=== PATIENT | female | born 1975 | race Caucasian/White ===

== ENCOUNTER 2020-05-30 20:06 | Inpatient (IN) | payer SELFPAY ==
[~2020-05-30] VITALS: Ht 154.9 cm; Wt 76.8 kg
--- OUTSIDE RECORDS SUMMARY | 2020-05-30 20:12 | XMS REPORT | Referral Summary ---
Author Author [facility] Organization [facility] Address Unknown Phone Unavailable Encounter VC Date(s): 05/28/18 - 05/28/18 [facility] [address] [place] [address] Discharge Disposition: Against Medical Advice Attending Physician: Mark Valdez DO Admitting Physician: Mark Valdez DO Vital Signs No data available for this section Problem List No data available for this section Allergies, Adverse Reactions, Alerts No data available for this section Medications No data available for this section Results No data available for this section Immunizations No data available for this section Procedures No data available for this section Social History No data available for this section Assessment and Plan No data available for this section
--- OUTSIDE RECORDS SUMMARY | 2020-05-30 20:12 | XMS REPORT ---
Author ELEANOR Stephen SYSTEM Organization Unknown Address Unknown Phone Unavailable Care Team Providers Care Mems Integration Engineer Name Role Phone UNASSIGNED DOCTOR , DOCTOR PP [phone] Reason For Visit Chief Complaint DEHYDRATED Social History Functional Status Vital Signs Results Chemistry from 02/24/2016 11:35 AMSODIUM 139 MMOL/L (136-145 MMOL/L) POTASSIUM 4.0 MMOL/L (3.5-5.1 MMOL/L) CHLORIDE 104 MMOL/L (98-107 MMOL/L) TCO2 24.4 MMOL/L (21.0-32.0 MMOL/L) *ANION GAP 10.6 MMOL/L (8.0-16.0 MMOL/L) BUN 12 MG/DL (7-18 MG/DL) CREATININE 0.66 MG/DL (0.55-1.02 MG/DL) *BUN/CREATININE RATIO 18.2 H (9.1-17.0 ) GLUCOSE 115 MG/DL H (65-99 MG/DL) *GFR EST NON AFR [place] >90 ML/MIN *GFRA EST AFR AMER >90 ML/MIN CALCIUM 8.5 MG/DL (8.5-10.1 MG/DL) BILIRUBIN TOTAL 0.40 MG/DL (0.20-1.00 MG/DL) TOTAL PROTEIN 7.1 GM/DL (6.4-8.2 GM/DL) ALBUMIN 3.6 GM/DL (3.4-5.0 GM/DL) *GLOBULIN 3.5 GM/DL (2.3-3.5 GM/DL) *A/G RATIO 1.0 MG/DL L (1.5-2.2 MG/DL) ALK PHOS 49 U/L (46-116 U/L) ALT (SGPT) 38 U/L (16-63 U/L) AST (SGOT) 24 U/L (15-37 U/L) Hematology from 02/24/2016 11:35 AMWBC 12.7 X10e3/UL H (3.6-11.2 X10e3/UL) RBC 4.72 X10e6/UL (3.63-4.92 X10e6/UL) HEMOGLOBIN 13.9 G/DL (11.0-14.3 G/DL) HEMATOCRIT 42.6 % H (31.2-41.9 %) *MCV 90.3 FL (79.0-98.0 FL) *MCH 29.4 PG (27.0-33.0 PG) *MCHC 32.6 G/DL (32.0-36.0 G/DL) *RDW 14.2 % (12.3-17.0 %) *RDWSD 45.1 (37.1-47.8 ) PLATELET 220 X10e3/UL (159-386 X10e3/UL) *MPV 10.1 FL (7.4-10.4 FL) AUTOMATED DIFF PERFORMED SEGS 80.4 % *LYMPHOCYTES 11.5 % *MONOCYTES 5.0 % *EOSINOPHILS 2.7 % *BASOPHILS 0.4 % *ABSOLUTE NEUTROPHILS 10.20 X10e3/UL H (1.80-7.80 X10e3/UL) *ABSOLUTE LYMPHOCYTES 1.50 X10e3/UL (1.00-3.00 X10e3/UL) *ABSOLUTE MONOCYTES 0.60 X10e3/UL (0.30-1.00 X10e3/UL) *ABSOLUTE EOSINOPHILS 0.30 X10e3/UL (0.00-0.50 X10e3/UL) *ABSOLUTE BASOPHILS 0.10 X10e3/UL (0.00-0.20 X10e3/UL) Urinalysis from 02/24/2016 1:10 PM*URINE COLOR YELLOW (STRAW/YELL/DK YELL ) *URINE APPEARANCE SL CLOUDY A (CLEAR ) URINE PH 5.5 (5.0-8.0 ) URINE SPECIFIC GRAVITY 1.010 (<=1.005->=1.030 ) *URINE GLUCOSE NEGATIVE MG/DL (NEGATIVE MG/DL) *URINE BILIRUBIN NEGATIVE (NEGATIVE ) *URINE KETONES NEGATIVE MG/DL (NEGATIVE MG/DL) *URINE BLOOD NEGATIVE (NEGATIVE ) *URINE PROTEIN NEGATIVE MG/DL (NEGATIVE MG/DL) *URINE UROBILINOGEN 0.2 EU/DL (0.2-1.0 EU/DL) *URINE NITRITES NEGATIVE (NEGATIVE ) *URINE LEUKOCYTES NEGATIVE (NEGATIVE ) Problems Encounter Diagnosis No relevant problems exist. Encounters Encounter Diagnosis No relevant problems exist. Plan of Care Procedures No relevant procedures performed. Immunizations No immunizations administered or ordered. Hospital Course Hospital Discharge Instructions Allergies, Adverse Reactions, Alerts * Penicillins causes unspecified. * Latex Allergy has not been assessed. * IV Contrast Allergy has not been assessed. Medication Medication reconciliation has not been performed.
--- OUTSIDE RECORDS SUMMARY | 2020-05-30 20:12 | XMS REPORT ---
Author ELEANOR Stephen SYSTEM Organization Unknown Address Unknown Phone Unavailable Care Team Providers Care Extrusion Press Operator Name Role Phone UNASSIGNED DOCTOR , DOCTOR PP Reason For Visit Chief Complaint VOMITING, DIARRHEA, NAUSEA Social History Functional Status Vital Signs Results Chemistry from 11/21/2015 1:41 PMSODIUM 138 MMOL/L (136-145 MMOL/L) POTASSIUM 3.7 MMOL/L (3.5-5.1 MMOL/L) CHLORIDE 107 MMOL/L (98-107 MMOL/L) TCO2 23.8 MMOL/L (21.0-32.0 MMOL/L) *ANION GAP 7.2 MMOL/L L (8.0-16.0 MMOL/L) BUN 14 MG/DL (7-18 MG/DL) CREATININE 0.73 MG/DL (0.55-1.02 MG/DL) *BUN/CREATININE RATIO 19.2 H (9.1-17.0 ) GLUCOSE 97 MG/DL (65-99 MG/DL) *GFR EST NON AFR [place] >90 ML/MIN *GFRA EST AFR AMER >90 ML/MIN CALCIUM 8.0 MG/DL L (8.5-10.1 MG/DL) BILIRUBIN TOTAL 0.30 MG/DL (0.20-1.00 MG/DL) TOTAL PROTEIN 6.6 GM/DL (6.4-8.2 GM/DL) ALBUMIN 3.1 GM/DL L (3.4-5.0 GM/DL) *GLOBULIN 3.5 GM/DL (2.3-3.5 GM/DL) *A/G RATIO 0.9 MG/DL L (1.5-2.2 MG/DL) ALK PHOS 46 U/L (46-116 U/L) ALT (SGPT) 25 U/L (16-63 U/L) AST (SGOT) 17 U/L (15-37 U/L) LIPASE 200 U/L (73-393 U/L) Chemistry from 11/21/2015 1:35 PM*COCAINE NEGATIVE (NEG <150 ) *PCP NEGATIVE (NEG <25 ) *OXYCODONE POSITIVE A (NEG <100 ) *PROPOXYPHENE (NORPROPOXYPHENE) NEGATIVE (NEG <300 ) *CANNABINOIDS NEGATIVE (NEG <50 ) *BENZODIAZEINE POSITIVE A (NEG <150 ) *AMPHETAMINE POSITIVE A (NEG <500 ) *BARBITURATES NEGATIVE (NEG <200 ) *METHAMPHETAMINES POSITIVE A (NEG <500 ) *METHADONE (UR) NEGATIVE (NEG <200 ) *OPIATES NEGATIVE (NEG <100 ) *TRICYCLICS NEGATIVE (NEG <300 ) Hematology from 11/21/2015 1:41 PMWBC 5.1 X10e3/UL (3.6-11.2 X10e3/UL) RBC 4.20 X10e6/UL (3.63-4.92 X10e6/UL) HEMOGLOBIN 13.0 G/DL (11.0-14.3 G/DL) HEMATOCRIT 39.2 % (31.2-41.9 %) *MCV 93.4 FL (79.0-98.0 FL) *MCH 30.9 PG (27.0-33.0 PG) *MCHC 33.1 G/DL (32.0-36.0 G/DL) *RDW 13.4 % (12.3-17.0 %) *RDWSD 43.8 (37.1-47.8 ) PLATELET 204 X10e3/UL (159-386 X10e3/UL) *MPV 9.9 FL (7.4-10.4 FL) AUTOMATED DIFF PERFORMED SEGS 72.2 % *LYMPHOCYTES 15.8 % *MONOCYTES 8.8 % *EOSINOPHILS 2.7 % *BASOPHILS 0.5 % *ABSOLUTE NEUTROPHILS 3.70 X10e3/UL (1.80-7.80 X10e3/UL) *ABSOLUTE LYMPHOCYTES 0.80 X10e3/UL L (1.00-3.00 X10e3/UL) *ABSOLUTE MONOCYTES 0.50 X10e3/UL (0.30-1.00 X10e3/UL) *ABSOLUTE EOSINOPHILS 0.10 X10e3/UL (0.00-0.50 X10e3/UL) *ABSOLUTE BASOPHILS 0.00 X10e3/UL (0.00-0.20 X10e3/UL) Urinalysis from 11/21/2015 1:35 PM*URINE COLOR YELLOW (STRAW/YELL/DK YELL ) *URINE APPEARANCE SL CLOUDY A (CLEAR ) URINE PH 5.5 (5.0-8.0 ) URINE SPECIFIC GRAVITY >1.030 (<=1.005->=1.030 ) *URINE GLUCOSE NEGATIVE MG/DL (NEGATIVE MG/DL) *URINE BILIRUBIN NEGATIVE (NEGATIVE ) *URINE KETONES NEGATIVE MG/DL (NEGATIVE MG/DL) *URINE BLOOD NEGATIVE (NEGATIVE ) *URINE PROTEIN NEGATIVE MG/DL (NEGATIVE MG/DL) *URINE UROBILINOGEN 0.2 EU/DL (0.2-1.0 EU/DL) *URINE NITRITES NEGATIVE (NEGATIVE ) *URINE LEUKOCYTES NEGATIVE (NEGATIVE ) UR NEGATIVE (NEGATIVE ) Coagulation from 11/21/2015 1:41 PM*PROTHROMBIN TIME 10.3 SECONDS (9.4-11.5 SECONDS) *INR 1.0 (0.9-1.1 ) CT Scan from 11/21/2015 3:03 PMCT ABD/PELVIS W/CONTRAST History: abdominal pain . Pt c/o weakness, dizzyness, abd. cramping, diarrhea, and pain from a tooth that broke 4 days ago. Pt states she can tast the infection from the tooth. Technique: Post contrast images were performed after the administration of 95 milliliters of Isovue intravenous contrast. Priors: CT of abdomen pelvis dated 08/20/2011 Findings: Abdomen Lung bases: There is mild right basilar atelectasis Liver: Normal density. There well-circumscribed low-density lesions within the liver centrally, which do not enhance on delayed imaging and are unchanged, suggestive of hepatic cysts Spleen: Normal. Pancreas: No discrete mass or inflammatory process. Gallbladder and biliary tract: No radiodense calculus or dilation. Adrenal glands: Normal. Kidneys: Normal enhancement. There are stable low-density lesions within both kidneys, suggestive of renal cysts. No radiodense stones or hydronephrosis. Urinary Bladder: Normal. Aorta: Normal in caliber. No periaortic lymphadenopathy. Bowel and Mesentery: There is mild mural thickening of small bowel loops, most prominent within the upper pelvis. No findings of appendicitis. Ascites: None. Pelvis Lymphadenopathy: None. Reproductive: Unremarkable. Osseous Structures: No suspicious findings. Impression: Mild mural thickening of small bowel loops, suspicious for enteritis. Electronically signed by: Rosalinda Blevins MD Dictated: 11/21/2015 15:30 Problems Encounter Diagnosis No relevant problems exist. [...]
--- OUTSIDE RECORDS SUMMARY | 2020-05-30 20:12 | XMS REPORT ---
Author ELEANOR Stephen SYSTEM Organization Unknown Address Unknown Phone Unavailable Care Team Providers Care Work Counselor Name Role Phone UNASSIGNED DOCTOR , DOCTOR PP [phone] Reason For Visit Chief Complaint VAGINAL DISCHARGE Social History Functional Status Vital Signs Results Problems Encounter Diagnosis No relevant problems exist. [...]
--- OUTSIDE RECORDS SUMMARY | 2020-05-30 20:12 | XMS REPORT ---
Author Author Arlet MEYER Organization [facility] Address [address] [place] [address] Care Team Providers Care Group Product Manager Name Role Phone MYLES MEYER Unavailable PROBLEMS Type Condition ICD9-CM Code [id number] Code Onset Dates Condition S tatus SNOMED Code Problem Primary insomnia F51.01 Active 397 2004 Problem Heroin use disorder, severe F11.20 Ac tive 1036536 Problem Severe episode of recurrent major depressive disorder, without psychotic features F33.2 Active 64999744 Problem Generalized anxiety disorder F41.1 A ctive 67520821 Problem Moderate episode of recurrent major depressive disorder F33.1 Active [id number] ALLERGIES No Known Allergies ENCOUNTERS Encounter Location Date Diagnosis [facility] [address] [address] Jul, [facility] [address] [facility] [id number] [address] [place] [id number] Jul, [facility] [address] [address] Jul, Heroin use disorder, severe F11.20 and Encounter for immunization Z23 [facility] [address] [place] [id number] [address] [place] [phone] Jul, [facility] [address] [place] [id number] [place] [phone] Jul, Heroin use disorder, severe F11.20 [facility] [address] [place] [id number] [place] [address] Jul, Otalgia of left ear H92.02 a nd Heroin use disorder, severe F11.20 [facility] [address] [place] [id number] [place] [phone] Jul, [facility] [address] [facility] [id number] [address] [place] [phone] Jul, Heroin use disorder, severe F11.20 and Primary insomnia F51.01 [facility] [address] [id number] [address] [place] [phone] Jun, Dental examination Z01.20 an d Caries K02.9 [facility] [address] [id number] [address] [place] [address] [phone] Jun, Caries K02.9 [facility] [address] [id number] [address] [place] [phone] Jun, Moderate episode of recurren t major depressive disorder F33.1 and Generalized anxiety disorder F41.1 IMMUNIZATIONS No Known Immunizations SOCIAL HISTORY Never Assessed REASON FOR VISIT MAT Assessment PLAN OF CARE Activity Details Follow Up tomorrow Reason: VITAL SIGNS Height 5 ft 5 in in 2018-07-27 Weight 163.5 lbs 2018-07-27 Temperature 98.8 degrees Fahrenheit 2018-07-27 Heart Rate 96 bpm 2018-07-27 Respiratory Rate 20 2018-07-27 BMI 27.20 kg/m2 2018-07-27 Blood pressure systolic 136 mmHg 2018-07-27 Blood pressure diastolic 82 mmHg 2018-07-27 MEDICATIONS Medication Instructions Dosage Frequency Start Date End Date Duration S tatus Multi Vitamin - Orally Once a day 1 tablet 24h 30 da y(s) Active Ibuprofen 400 mg Orally Q4 hours 1 tablet with food or milk as needed Active Trazodone HCl 150 MG Orally Once a day 1 tablet at bedtime 24h 30 day(s) Active Prozac 40 mg Orally Once a day 1 capsule 24h Jun, 30 day(s) Active BusPIRone HCl 30 MG Orally Twice a day 1 tablet 12h Jun, 28 days Active RESULTS Name Result Date Reference Range URINE DRUG SCREEN (IN HOUSE) Lot # [id number] Exp date 06/2019 Control + COCAINE neg AMPH neg MTD neg THC neg OPIATE neg BENZO neg PCP neg BAR neg OXY neg MAMP neg BUP neg MDMA neg TCA n/a PROCEDURES Procedure Date Ordered Result Body Site DRUG TEST PRSMV DIR OPT OBS Jul 27, 2018 INSTRUCTIONS MEDICATIONS ADMINISTERED No Known Medications MEDICAL (GENERAL) HISTORY Type Description Date Medical History Undergoing treatment for substance addic tion Medical History axnxiety Medical History PTSD Medical History insomnia Surgical History tubaligation 1996 Hospitalization History surgery
--- OUTSIDE RECORDS SUMMARY | 2020-05-30 20:12 | XMS REPORT ---
Author Author Arlet MEYER Organization [facility] Address [address] [place] [address] Care Team Providers Care State Tested Nursing Assistant Name Role Phone MYLES MEYER Unavailable PROBLEMS Type Condition ICD9-CM Code [id number] Code Onset Dates Condition S tatus SNOMED Code Problem Primary insomnia F51.01 Active 397 2004 Problem Heroin use disorder, severe F11.20 Ac tive 7271378 Problem Severe episode of recurrent major depressive disorder, without psychotic features F33.2 Active 75995972 Problem Generalized anxiety disorder F41.1 A ctive 68376626 Problem Moderate episode of recurrent major depressive disorder F33.1 Active [id number] ALLERGIES No Known Allergies ENCOUNTERS Encounter Location Date Diagnosis [facility] [address] [address] Jul, [facility] [address] [facility] [id number] [address] [place] [phone] Jul, [facility] [address] [address] Jul, Heroin use disorder, severe F11.20 and Encounter for immunization Z23 [facility] [address] [place] [id number] [address] [place] [phone] Jul, [facility] [address] [place] [id number] [place] [phone] Jul, Heroin use disorder, severe F11.20 [facility] [address] [place] [id number] [place] [phone] Jul, Otalgia of left ear H92.02 a nd Heroin use disorder, severe F11.20 [facility] [address] [place] [id number] [address] [place] [place] [phone] Jul, [facility] [address] [facility] [id number] [address] [place] [place] [phone] Jul, Heroin use disorder, severe F11.20 and Primary insomnia F51.01 [facility] [address] [id number] [address] [place] [address] [phone] Jun, Dental examination Z01.20 an d Caries K02.9 [facility] [address] [id number] [address] [place] [phone] Jun, Caries K02.9 [facility] [address] [id number] [address] [place] [phone] Jun, Moderate episode of recurren t major depressive disorder F33.1 and Generalized anxiety disorder F41.1 IMMUNIZATIONS Vaccine Route Administration Date Status FLULAVAL QUAD 0.5ML (6 MO & UP) 2017 IM Intramuscular Aug 03 18 Administered SOCIAL HISTORY Never Assessed REASON FOR VISIT MAT F/U PLAN OF CARE Activity Details Follow Up 4 Weeks Reason: VITAL SIGNS Height 5 ft 5 in in 2018-08-03 Weight 170.2 lbs 2018-08-03 Temperature 98.4 degrees Fahrenheit 2018-08-03 Heart Rate 84 bpm 2018-08-03 Respiratory Rate 18 2018-08-03 BMI 28.32 kg/m2 2018-08-03 Blood pressure systolic 104 mmHg 2018-08-03 Blood pressure diastolic 66 mmHg 2018-08-03 MEDICATIONS Medication Instructions Dosage Frequency Start Date End Date Duration S tatus Suboxone 8-2 MG Sublingual Once a day 2 film under the t ongue and allow to dissolve 24h Jul, Jul, 13 days Active BusPIRone HCl 30 MG Orally Twice a day 1 tablet 12h Jun, 28 days Active Trazodone HCl 150 MG Orally Once a day 1 tablet at bedtime 24h 30 day(s) Active Suboxone 4-1 MG Sublingual today 1 film under the tongue and all ow to dissolve Jul, Jul, 1 dose Active Multi Vitamin - Orally Once a day 1 tablet 24h 30 da y(s) Active Ibuprofen 400 mg Orally Q4 hours 1 tablet with food or milk as needed Active Prozac 40 mg Orally Once a day 1 capsule 24h Jun, 30 day(s) Active RESULTS No Results PROCEDURES Procedure Date Ordered Result Body Site FLULAVAL QUAD 0.5ML (6 MO AND UP) 2017Aug 03, 2018 SINGLE IMMUNIZATION ADMIN Aug 03, 2018 INSTRUCTIONS MEDICATIONS ADMINISTERED No Known Medications MEDICAL (GENERAL) HISTORY Type Description Date Medical History Undergoing treatment for substance addic tion Medical History axnxiety Medical History PTSD Medical History insomnia Surgical History tubaligation 1996 Hospitalization History surgery
--- OUTSIDE RECORDS SUMMARY | 2020-05-30 20:12 | XMS REPORT ---
Author Author Arlet SALDANA Organization [facility] Address [address] [place] [address] Care Team Providers Care Handcrew Foreman Name Role Phone PRINCESS SALDANA Unavailable PROBLEMS Type Condition ICD9-CM Code [id number] Code Onset Dates Condition S tatus SNOMED Code Problem Primary insomnia F51.01 Active 397 2004 Problem Heroin use disorder, severe F11.20 Ac tive 6903080 Problem Severe episode of recurrent major depressive disorder, without psychotic features F33.2 Active 10383665 Problem Generalized anxiety disorder F41.1 A ctive 14241039 Problem Moderate episode of recurrent major depressive disorder F33.1 Active [id number] ALLERGIES No Information ENCOUNTERS Encounter Location Date Diagnosis [place] [id number] [address] Jul, [place] [address] [address] Jul, Heroin use disorder, severe F11.20 [place] [address] [address] Jul, Heroin use disorder, severe F11.20 and Encounter for immunization Z23 [place] [address] [place] [id number] [place] [phone] Jul, [place] [address] [phone] Jul, Heroin use disorder, severe F11.20 [place] [address] [address] Jul, Otalgia of left ear H92.02 a nd Heroin use disorder, severe F11.20 [place] [address] [address] Jul, [facility] [address] [facility] [id number] [address] [place] [phone] Jul, Heroin use disorder, severe F11.20 and Primary insomnia F51.01 [facility] [address] [facility] [id number] [address] [place] [address] [phone] Jun, Dental examination Z01.20 an d Caries K02.9 [facility] [address] [place] [id number] [address] [place] [phone] Jun, Caries K02.9 [facility] [address] [facility] [id number] [address] [place] [phone] Jun, Moderate episode of recurren t major depressive disorder F33.1 and Generalized anxiety disorder F41.1 IMMUNIZATIONS No Known Immunizations SOCIAL HISTORY Never Assessed REASON FOR VISIT Medication refill request PLAN OF CARE VITAL SIGNS MEDICATIONS Unknown Medications RESULTS No Results PROCEDURES No Known procedures INSTRUCTIONS MEDICATIONS ADMINISTERED No Known Medications MEDICAL (GENERAL) HISTORY Type Description Date Medical History Undergoing treatment for substance addic tion Medical History axnxiety Medical History PTSD Medical History insomnia Surgical History tubaligation 1995 Hospitalization History surgery
--- OUTSIDE RECORDS SUMMARY | 2020-05-30 20:12 | XMS REPORT ---
Author Author Arlet MEYER Organization [facility] Address [address] [place] [address] Care Team Providers Care Investor Relations Analyst Name Role Phone MYLES MEYER Unavailable PROBLEMS Type Condition ICD9-CM Code [id number] Code Onset Dates Condition S tatus SNOMED Code Problem Primary insomnia F51.01 Active 397 2004 Problem Heroin use disorder, severe F11.20 Ac tive 1234578 Problem Severe episode of recurrent major depressive disorder, without psychotic features F33.2 Active 43834435 Problem Generalized anxiety disorder F41.1 A ctive 07260974 Problem Moderate episode of recurrent major depressive disorder F33.1 Active [id number] ALLERGIES No Information ENCOUNTERS Encounter Location Date Diagnosis [facility] [address] [place] [id number] [place] [phone] Jul, [facility] [address] [facility] [id number] [address] [place] [phone] Jul, [facility] [address] [address] Jul, Heroin use disorder, severe F11.20 and Encounter for immunization Z23 [facility] [address] [place] [id number] [address] [place] [phone] Jul, [facility] [address] [place] [id number] [place] [phone] Jul, Heroin use disorder, severe F11.20 [facility] [address] [place] [id number] [place] [phone] Jul, Otalgia of left ear H92.02 a nd Heroin use disorder, severe F11.20 [facility] [address] [place] [id number] [address] [place] [phone] Jul, [facility] [address] [facility] [id number] [address] [place] [phone] Jul, Heroin use disorder, severe F11.20 and Primary insomnia F51.01 [facility] [address] [id number] [address] [place] [phone] Jun, Dental examination Z01.20 an d Caries K02.9 [facility] [address] [facility] [id number] [address] [place] [address] [phone] Jun, Caries K02.9 [facility] [address] [facility] [id number] [address] [place] [phone] Jun, Moderate episode of recurren t major depressive disorder F33.1 and Generalized anxiety disorder F41.1 IMMUNIZATIONS No Known Immunizations SOCIAL HISTORY Never Assessed REASON FOR VISIT Induction Day 1 PLAN OF CARE Activity Details Follow Up tomorrow Reason: VITAL SIGNS MEDICATIONS Unknown Medications RESULTS Name Result Date Reference Range ETOH SALIVA Lot [id number] Exp. 07/25/2018 Result neg PROCEDURES No Known procedures INSTRUCTIONS MEDICATIONS ADMINISTERED No Known Medications MEDICAL (GENERAL) HISTORY Type Description Date Medical History Undergoing treatment for substance addic tion Medical History axnxiety Medical History PTSD Medical History insomnia Surgical History tubaligation 1995 Hospitalization History surgery
--- OUTSIDE RECORDS SUMMARY | 2020-05-30 20:12 | XMS REPORT ---
Author Author Arlet MEYER Organization [facility] Address [address] 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 Ac tive 7327821 Problem Severe episode of recurrent major depressive disorder, without psychotic features F33.2 Active 47089725 Problem Generalized anxiety disorder F41.1 A ctive 25981131 Problem Moderate episode of recurrent major depressive disorder F33.1 Active [id number] ALLERGIES No Information ENCOUNTERS Encounter Location Date Diagnosis [facility] [id number] [address] [place] [phone] Jul, [facility] [address] [facility] [id number] [address] [place] [address] [phone] Jul, [facility] [address] [address] Jul, Heroin use disorder, severe F11.20 and Encounter for immunization Z23 [facility] [address] [id number] [address] [place] [phone] Jul, [facility] [id number] [place] [phone] Jul, Heroin use disorder, severe F11.20 [facility] [id number] [place] [phone] Jul, Otalgia of left ear H92.02 a nd Heroin use disorder, severe F11.20 [facility] [address] [id number] [address] [place] [phone] Jul, [facility] [address] [facility] [id number] [address] [place] [phone] Jul, Heroin use disorder, severe F11.20 and Primary insomnia F51.01 [facility] [address] [facility] [id number] [address] [place] [address] [phone] Jun, Dental examination Z01.20 an d Caries K02.9 [facility] [address] [facility] [id number] [address] [place] [address] [phone] Jun, Caries K02.9 [facility] [address] [facility] [id number] [address] [place] [phone] Jun, Moderate episode of recurren t major depressive disorder F33.1 and Generalized anxiety disorder F41.1 IMMUNIZATIONS No Known Immunizations SOCIAL HISTORY Never Assessed REASON FOR VISIT medication PLAN OF CARE VITAL SIGNS MEDICATIONS Unknown Medications RESULTS No Results PROCEDURES No Known procedures INSTRUCTIONS MEDICATIONS ADMINISTERED No Known Medications MEDICAL (GENERAL) HISTORY Type Description Date Medical History Undergoing treatment for substance addic tion Medical History axnxiety Medical History PTSD Medical History insomnia Surgical History tubaligation 1995 Hospitalization History surgery
--- OUTSIDE RECORDS SUMMARY | 2020-05-30 20:12 | XMS REPORT ---
Author Author Arlet MEYER Organization [facility] Address [address] [place] [address] Care Team Providers Care Neuropsychology Medical Consultant Name Role Phone MYLES MEYER Unavailable PROBLEMS Type Condition ICD9-CM Code [id number] Code Onset Dates Condition S tatus SNOMED Code Problem Primary insomnia F51.01 Active 397 2004 Problem Heroin use disorder, severe F11.20 Ac tive 0916769 Problem Severe episode of recurrent major depressive disorder, without psychotic features F33.2 Active 90117219 Problem Generalized anxiety disorder F41.1 A ctive 68112660 Problem Moderate episode of recurrent major depressive disorder F33.1 Active 095435784 ALLERGIES No Information ENCOUNTERS Encounter Location Date Diagnosis [facility] [address] [id number] [address] [place] [phone] Jul, [facility] [address] [facility] [id number] [address] [place] [address] [phone] Jul, [facility] [address] [phone] Jul, Heroin use disorder, severe F11.20 and Encounter for immunization Z23 [facility] [address] [id number] [address] [place] [phone] Jul, [facility] [id number] [place] [phone] Jul, Heroin use disorder, severe F11.20 [facility] [id number] [place] [phone] Jul, Otalgia of left ear H92.02 a nd Heroin use disorder, severe F11.20 [facility] [address] [id number] [address] [place] [phone] Jul, [facility] [address] [facility] [id number] [address] [place] [phone] Jul, Heroin use disorder, severe F11.20 and Primary insomnia F51.01 [facility] [address] [id number] [address] [place] [address] [phone] Jun, Dental examination Z01.20 an d Caries K02.9 [facility] [address] [facility] [id number] [address] [place] [address] [phone] Jun, Caries K02.9 [facility] [address] [facility] [id number] [address] [place] [phone] Jun, Moderate episode of recurren t major depressive disorder F33.1 and Generalized anxiety disorder F41.1 IMMUNIZATIONS No Known Immunizations SOCIAL HISTORY Never Assessed REASON FOR VISIT Induction Day 2 PLAN OF CARE VITAL SIGNS MEDICATIONS Medication Instructions Dosage Frequency Start Date End Date Duration S tatus Suboxone 8-2 MG Sublingual Once a day 1.5 film under the tongue and allow to dissolve 24h Jul, Active RESULTS No Results PROCEDURES No Known procedures INSTRUCTIONS MEDICATIONS ADMINISTERED No Known Medications MEDICAL (GENERAL) HISTORY Type Description Date Medical History Undergoing treatment for substance addic tion Medical History axnxiety Medical History PTSD Medical History insomnia Surgical History tubaligation 1996 Hospitalization History surgery
--- OUTSIDE RECORDS SUMMARY | 2020-05-30 20:13 | XMS REPORT ---
Author Arlet Ji Organization [facility] Address [address] [place] [address] [phone] Care Team Providers Care Dry Lumber Grader Name Role Phone Charito Garza Unavailable PROBLEMS Type Condition ICD9-CM Code ECV21-XG Code Onset Dates Condition S tatus SNOMED Code Problem ADALBERTO (generalized anxiety disorder) F41.1 Active 13751990 Problem Major depressive disorder, recurrent episode, mild F33.0 Active 58650774 Problem PTSD (post-traumatic stress disorder) F43.10 Active 96358069 ALLERGIES No Information ENCOUNTERS Encounter Location Date Diagnosis [facility] [address] [place] [address] [phone] Jan, [facility] [address] [place] [address] [id number] Dec, [facility] [address] [place] [address] [phone] Dec, [facility] [address] [place] [address] [phone] Nov, Chronic post-traumatic stress disorder (PTSD) F43.12 and Methamphetamine use disorder, severe, 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 [facility] [address] [phone] Nov, ADALBERTO (generalized anxiety disorder) F41.1 [facility] [address] [place] [address] [id number] Nov, [facility] [address] [place] [address] [phone] Nov, [facility] [address] [place] [address] [phone] Oct, [facility] [address] [place] [address] [phone] Oct, Encounter for screening for dental disorders Z13.84 [facility] [address] [place] [address] [phone] Oct, Major depressive disorder, recurrent episode, mild F33.0 and ADALBERTO (generalized anxiety disorder) F41.1 [facility] [address] [place] [address] [id number] Sep, [facility] [address] [place] [address] [phone] Sep, [facility] [address] [place] [address] [phone] Nov, [facility] [address] [place] [address] [phone] Oct, [facility] [address] [place] [address] [phone] Sep, [facility] [address] [place] [address] [phone] Sep, IMMUNIZATIONS No Known Immunizations SOCIAL HISTORY Never Assessed REASON FOR VISIT Referral to psychiatrist PLAN OF CARE VITAL SIGNS MEDICATIONS Unknown Medications RESULTS No Results PROCEDURES No Known procedures INSTRUCTIONS MEDICATIONS ADMINISTERED No Known Medications MEDICAL (GENERAL) HISTORY Type Description Date Medical History Gorphobic Medical History Major depressive disorder, recurrent epi sode, mild Medical History ADALBERTO (generalized anxiety disorder) Medical History PTSD (post-traumatic stress disorder) Surgical History tubal ligation
--- OUTSIDE RECORDS SUMMARY | 2020-05-30 20:13 | XMS REPORT ---
Author Arlet Ji Organization [facility] Address [address] [place] [address] [phone] Care Team Providers Care Publications Sales Representative Name Role Phone Charito Garza Unavailable PROBLEMS Type Condition ICD9-CM Code BCF68-ZX Code Onset Dates Condition S tatus SNOMED Code Problem ADALBERTO (generalized anxiety disorder) F41.1 Active 02634950 Problem Major depressive disorder, recurrent episode, mild F33.0 Active 24486667 Problem PTSD (post-traumatic stress disorder) F43.10 Active 95859967 ALLERGIES No Information ENCOUNTERS Encounter Location Date Diagnosis [facility] [address] [place] [address] [phone] Jan, [facility] [address] [place] [address] [phone] Jan, [facility] [address] [place] [address] [phone] Dec, [facility] [address] [place] [address] [phone] Dec, [facility] [address] [place] [address] [phone] Dec, [facility] [address] [place] [address] [phone] Nov, Chronic post-traumatic stress disorder (PTSD) F43.12 and Methamphetamine use disorder, severe, 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 [facility] [address] [place] [address] [phone] Nov, ADALBERTO (generalized anxiety disorder) F41.1 [facility] [address] [place] [address] [id number] Nov, [facility] [address] [place] [address] [id number] Nov, [facility] [address] [place] [address] [id number] Oct, [facility] [address] [place] [address] [phone] Oct, Encounter for screening for dental disorders Z13.84 [facility] [address] [place] [address] [phone] Oct, Major depressive disorder, recurrent episode, mild F33.0 and ADALBERTO (generalized anxiety disorder) F41.1 [facility] [address] [place] [address] [phone] Sep, [facility] [address] [place] [address] [id number] Sep, [facility] [address] [place] [address] [phone] Nov, [facility] [address] [place] [address] [phone] Oct, [facility] [address] [place] [address] [phone] Sep, [facility] [address] [place] [address] [phone] Sep, IMMUNIZATIONS No Known Immunizations SOCIAL HISTORY Never Assessed REASON FOR VISIT PLAN OF CARE VITAL SIGNS MEDICATIONS Unknown Medications RESULTS No Results PROCEDURES No Known procedures INSTRUCTIONS MEDICATIONS ADMINISTERED No Known Medications MEDICAL (GENERAL) HISTORY Type Description Date Medical History Gorphobic Medical History Major depressive disorder, recurrent epi sode, mild Medical History ADALBERTO (generalized anxiety disorder) Medical History PTSD (post-traumatic stress disorder) Surgical History tubal ligation
--- OUTSIDE RECORDS SUMMARY | 2020-05-30 20:13 | XMS REPORT ---
Author Author Arlet Oakes Organization [facility] Address [address] [place] [address] Care Team Providers Care Infection Control Specialist Name Role Phone Abraham Oakes Unavailable PROBLEMS Type Condition ICD9-CM Code OKS95-NI Code Onset Dates Condition S tatus SNOMED Code Problem ADALBERTO (generalized anxiety disorder) F41.1 Active 86181710 Problem Major depressive disorder, recurrent episode, mild F33.0 Active 67512046 Problem PTSD (post-traumatic stress disorder) F43.10 Active 81981648 ALLERGIES No Information SOCIAL HISTORY Never Assessed PLAN OF CARE VITAL SIGNS MEDICATIONS Medication Instructions Dosage Frequency Start Date End Date Duration S tatus Flonase Allergy Relief 50 mcg/actuation inhale 2 sprays (100 mcg) in each nostril by intranasal route once daily Sep, Active Fluoxetine HCl 60 mg take 1 tablet (60 m g) by oral route once daily in the morning Oct, Active Clonazepam 0.5 mg take 1 tablet by Oral route 3 times per day Nov, Active BusPIRone HCl 15 mg Take one tablet (15m g) by mouth in the morning, two tablets (30mg) mid-day, and one tablet (15mg) in the evening Sep Active Trazodone HCl 150 mg ... ... Take 1 tab po qhs Oct, 2 017 Active RESULTS No Results PROCEDURES Procedure Date Ordered Result Body Site TOPICAL FLUORIDE VARNISH Nov 11, 2017 SCREENING OF A PATIENT Nov 11, 2017 IMMUNIZATIONS No Known Immunizations MEDICAL (GENERAL) HISTORY Type Description Date Medical History Gorphobic Medical History Major depressive disorder, recurrent epi sode, mild Medical History ADALBERTO (generalized anxiety disorder) Medical History PTSD (post-traumatic stress disorder) Surgical History tubal ligation
--- OUTSIDE RECORDS SUMMARY | 2020-05-30 20:13 | XMS REPORT ---
Author Arlet Ji Organization [facility] Address [address] [place] [address] [phone] Care Team Providers Care Career Counselor Name Role Phone Charito Garza Unavailable PROBLEMS Type Condition ICD9-CM Code RYS37-HC Code Onset Dates Condition S tatus SNOMED Code Problem ADALBERTO (generalized anxiety disorder) F41.1 Active 94812135 Problem Major depressive disorder, recurrent episode, mild F33.0 Active 71642405 Problem PTSD (post-traumatic stress disorder) F43.10 Active 26363742 ALLERGIES No Information ENCOUNTERS Encounter Location Date Diagnosis [facility] [address] [place] [address] [phone] Jan, [facility] [address] [place] [address] [phone] Nov, [facility] [address] [place] [address] [phone] Nov, [facility] [address] [place] [address] [id number] Nov, [facility] [address] [place] [address] [id number] Oct, [facility] [address] [place] [address] [id number] Oct, Encounter for screening for dental disorders Z13.84 [facility] [address] [place] [address] [id number] Oct, Major depressive disorder, recurrent episode, mild F33.0 and ADALBERTO (generalized anxiety disorder) F41.1 [facility] [address] [place] [address] [phone] Sep, [facility] [address] [place] [address] [id number] Sep, [facility] [address] [place] [address] [id number] Nov, [facility] [address] [place] [address] [id number] Oct, [facility] [address] [place] [address] [phone] Sep, [facility] [address] [place] [phone] Sep, IMMUNIZATIONS No Known Immunizations SOCIAL HISTORY Never Assessed REASON FOR VISIT Anxiety PLAN OF CARE VITAL SIGNS MEDICATIONS Unknown Medications RESULTS No Results PROCEDURES No Known procedures INSTRUCTIONS MEDICATIONS ADMINISTERED No Known Medications MEDICAL (GENERAL) HISTORY Type Description Date Medical History Gorphobic Medical History Major depressive disorder, recurrent epi sode, mild Medical History ADALBERTO (generalized anxiety disorder) Medical History PTSD (post-traumatic stress disorder) Surgical History tubal ligation
--- OUTSIDE RECORDS SUMMARY | 2020-05-30 20:13 | XMS REPORT ---
Author Arlet Ji Organization [facility] Address [address] [place] [address] [phone] Care Team Providers Care Telecommunications Officer Name Role Phone Charito Garza Unavailable PROBLEMS Type Condition ICD9-CM Code ZJO27-GY Code Onset Dates Condition S tatus SNOMED Code Problem ADALBERTO (generalized anxiety disorder) F41.1 Active 36832769 Problem Major depressive disorder, recurrent episode, mild F33.0 Active 30929247 Problem PTSD (post-traumatic stress disorder) F43.10 Active 13788933 ALLERGIES No Information ENCOUNTERS Encounter Location Date Diagnosis [facility] [address] [place] [address] [phone] Jan, [facility] [address] [place] [address] [phone] Dec, [facility] [address] [place] [address] [phone] Dec, [facility] [address] [place] [address] [id number] Dec, [facility] [address] [place] [address] [phone] Nov, Chronic post-traumatic stress disorder (PTSD) F43.12 and Methamphetamine use disorder, severe, 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 [facility] [address] [place] [address] [id number] Nov, ADALBERTO (generalized anxiety disorder) F41.1 [facility] [address] [place] [address] [id number] Nov, [facility] [address] [place] [address] [phone] Nov, [facility] [address] [place] [address] [id number] Oct, [facility] [address] [place] [address] [id number] Oct, Encounter for screening for dental disorders Z13.84 [facility] [address] [place] [address] [id number] Oct, Major depressive disorder, recurrent episode, mild F33.0 and ADALBERTO (generalized anxiety disorder) F41.1 [facility] [address] [place] [address] [phone] Sep, [facility] [address] [place] [address] [id number] Sep, [facility] [address] [place] [address] [id number] Nov, [facility] [address] [place] [address] [id number] Oct, [facility] [address] [place] [address] [phone] Sep, [facility] [address] [place] [address] [phone] Sep, IMMUNIZATIONS No Known Immunizations SOCIAL HISTORY Never Assessed REASON FOR VISIT referral info needed PLAN OF CARE VITAL SIGNS MEDICATIONS Unknown Medications RESULTS No Results PROCEDURES No Known procedures INSTRUCTIONS MEDICATIONS ADMINISTERED No Known Medications MEDICAL (GENERAL) HISTORY Type Description Date Medical History Gorphobic Medical History Major depressive disorder, recurrent epi sode, mild Medical History ADALBERTO (generalized anxiety disorder) Medical History PTSD (post-traumatic stress disorder) Surgical History tubal ligation
--- OUTSIDE RECORDS SUMMARY | 2020-05-30 20:13 | XMS REPORT ---
Author Author Arlet PARADA Organization [facility] Address Unknown Care Team Providers Care Quilt Maker Name Role Phone PANCHITO PARADA Unavailable PROBLEMS Type Condition ICD9-CM Code [id number] Code Onset Dates Condition S tatus SNOMED Code Problem Primary insomnia F51.01 Active 397 2004 Problem Heroin use disorder, severe F11.20 Ac tive 0431524 Problem Severe episode of recurrent major depressive disorder, without psychotic features F33.2 Active 22889389 Problem Generalized anxiety disorder F41.1 A ctive 92678433 Problem Moderate episode of recurrent major depressive disorder F33.1 Active 938588784 ALLERGIES No Known Allergies ENCOUNTERS Encounter Location Date Diagnosis [facility] [address] [facility] [id number] [address] [place] [phone] Jul, [facility] [address] [id number] [address] [place] [address] [id number] Jul, [facility] [address] [id number] [address] [place] [phone] Jul, Heroin use disorder, severe F11.20 and Encounter for immunization Z23 [facility] [address] [facility] [id number] [address] [place] [phone] Jul, [facility] [address] [id number] [address] [place] [phone] Jul, Heroin use disorder, severe F11.20 [facility] [address] [facility] [id number] [address] [place] [phone] Jul, Otalgia of left ear H92.02 a nd Heroin use disorder, severe F11.20 [facility] [address] [facility] [id number] [address] [place] [phone] Jul, [facility] [address] [facility] [id number] [place] [phone] 02 Jul, 2018 Heroin use disorder, severe F11.20 and Primary insomnia F51.01 [facility] [address] [facility] [id number] [address] [place] [address] [phone] Jun, Dental examination Z01.20 an d Caries K02.9 [facility] [address] [facility] [id number] [address] [place] [address] [phone] Jun, Caries K02.9 [facility] [address] [facility] [id number] [address] [place] [phone] Jun, Moderate episode of recurren t major depressive disorder F33.1 and Generalized anxiety disorder F41.1 IMMUNIZATIONS No Known Immunizations SOCIAL HISTORY Never Assessed REASON FOR VISIT zac PLAN OF CARE Activity Details Follow Up prn Reason:hollis VITAL SIGNS Height 5 ft 5 in in 2018-07-23 Blood pressure systolic 125 mmHg 2018-07-23 Blood pressure diastolic 91 mmHg 2018-07-23 MEDICATIONS Medication Instructions Dosage Frequency Start Date End Date Duration S tatus Multi Vitamin - Orally Once a day 1 tablet 24h 30 da y(s) Active Prozac 40 mg Orally Once a day 1 capsule 24h Jun, 30 day(s) Active BusPIRone HCl 30 MG Orally Twice a day 1 tablet 12h Jun, 28 days Active Trazodone HCl 150 MG Orally Once a day 1 tablet at bedtime 24h 30 day(s) Active RESULTS No Results PROCEDURES Procedure Date Ordered Result Body Site LTD ORAL EVALUATION - PROBLEM FOCUS Jul 23, 2018 INTRAORL-PERIAPICAL 1 FILM [id number] Jul 23, 2018 BITEWING - SINGLE FILM Jul 23, 2018 INTRAORL-PERIAPICAL EA ADD FILM Jul 23, 2018 EXTRAC ERUPTED TOOTH/EXPOSED ROOT Jul 23, 2018 INSTRUCTIONS MEDICATIONS ADMINISTERED No Known Medications MEDICAL (GENERAL) HISTORY Type Description Date Medical History Undergoing treatment for substance addic tion Medical History axnxiety Medical History PTSD Medical History insomnia Surgical History tubaligation 1995 Hospitalization History surgery
--- OUTSIDE RECORDS SUMMARY | 2020-05-30 20:13 | XMS REPORT | Continuity of Care Document ---
Author Author [facility] Organization [facility] Address Unknown Phone Unavailable Support Name Relationship Address Phone DELICIABEN BARNEY DO Caregiver [address] [place] [address] TAWNY RIVERA Next Of Kin [address] [place] [address] Insurance Providers Payer Name Policy Number Subscriber Name Relationship Self Pay Arlet Garcia 17 Self Advance Directives Directive Response Recorded Date/Time Advanced Directives Type None 10/24/14 7:17pm Problems Medical Problems Problem Onset Date Status Opioid withdrawal Unknown Active Heroin withdrawal Unknown Active Opioid withdrawal Unknown Active Methamphetamine abuse Unknown Active Well adult exam Unknown Active Medications Medication Dose Route Sig Days/Qty Instructions Order Date Disc ontinued Date Status Clonidine HCl 1 Tab PO DAILY 09/05/14 A ctive Prochlorperazine Maleate 10 Mg PO FOUR TIMES DAILY 2 Qty Take 1 tablet, by mouth, 4 times a day. 09/05/14 09/05/14 Discontinued Prochlorperazine Maleate 10 Mg PO FOUR TIMES DAILY 8 Qty 09/05/14 Active Buspirone HCl 10/24/14 A ctive Fluoxetine HCl 2 Cap PO DAILY 10/24/14 Active Social History Social History Problem Response Recorded Date/Christiano e Hx Substance Use Y METH AND HEROIN-SEP 04 10/24/2014 7:38 pm Tobacco Usage smoke 09/18/2014 2:38pm Query Response Start Date Stop Date Smoking Status Current every day smoker Hospital Discharge Instructions No hospital discharge instructions. Plan of Care No plan of care. Functional Status Query Response Date Recorded Physical Hygiene Self October 24, 2014 7:38pm Disabilities None October 24, 2014 7:38pm Devices Used None October 24, 2014 7:38pm Dressing Self October 24, 2014 7:38pm Ambulation Self October 24, 2014 7:38pm Diet Self October 24, 2014 7:38pm Mental Status Alert Oriented October 24, 2014 7:44pm Disabilities None October 24, 2014 7:38pm Devices Used None October 24, 2014 7:38pm Physical Hygiene Self October 24, 2014 7:38pm Dressing Self October 24, 2014 7:38pm Ambulation Self October 24, 2014 7:38pm Diet Self October 24, 2014 7:38pm Allergies, Adverse Reactions, Alerts Allergen Type Severity Reaction Status Last Updated Penicillin Adverse Reaction Unknown Active 10/24/14 Immunizations Name Given Type Hx Influenza Vaccination No Historical Hx Influenza Vaccination No Historical Vital Signs Acute Vital Signs Vital Response Date/Time Temperature (Fahrenheit) 97.8 deg F (96.8 - 99.1) Temperature (Calculated Celsius) 36.54558 degrees C (36.0 - 37.3) Pulse Rate (adult) 83 bpm (60 - 100) Respiratory Rate 15 breaths/min (10 - 20) O2 Sat by Pulse Oximetry 98 % (90 - 100) Blood Pressure 130/75 mm Hg Height 5 ft 0 in Weight 149 lb Body Mass Index 29.0 kg/m^2 Results Test Source Date Result Interp. Ref. Range Comments Acetaminophen Level September 05, 2014 5:46pm < 10 UG/ML L 10-30 TOXIC <4 HR POST INGESTION: >150 MG/L;TOXIC <12 HR POST INGESTION: >50 MG/L Alanine Aminotransferase (ALT/SGPT) September 05, 2014 5:46pm 34 U/L N 9-52 Albumin September 05, 2014 5:46pm 4.2 G/DL N 3.5-5 .0 Albumin/Globulin Ratio September 05, 2014 5:46pm 1.2 RATIO N 1.1-2.2 Alcohol, Quantitative September 05, 2014 5:46pm <10 MG/DL - Alkaline Phosphatase September 05, 2014 5:46pm 54 U/L N 38-126 Anion Gap September 05, 2014 5:46pm 11 MEQ/L N 5-15 Aspartate Amino Transf (AST/SGOT) September 05, 2014 5:46pm 2 4 U/L N 14-36 BUN/Creatinine Ratio September 05, 2014 5:46pm 19 RATIO N 6-26 Basophils # (Auto) September 05, 2014 5:46pm 0.0 T/MM3 N 0-0.2 Basophils (%) (Auto) September 05, 2014 5:46pm 0.7 % N 0-2 Blood Urea Nitrogen September 05, 2014 5:46pm 15.0 MG/DL N 7-17 Calcium Level September 05, 2014 5:46pm 9.3 MG/DL N 8 .4-10.2 Calculated Osmolality September 05, 2014 5:46pm 276 MOSM/KG N 261-280 Carbon Dioxide Level September 05, 2014 5:46pm 27 MEQ/L N 22-30 Chloride Level September 05, 2014 5:46pm 105 MEQ/L N 98-107 Creatinine September 05, 2014 5:46pm 0.8 MG/DL N 0.7- 1.2 Eosinophils # (Auto) September 05, 2014 5:46pm 0.1 T/MM3 N 0-0.5 Eosinophils (%) (Auto) September 05, 2014 5:46pm 2.2 % N 0-4 Globulin September 05, 2014 5:46pm 3.4 G/DL N 2.4-3 .6 Glucose Level September 05, 2014 5:46pm 101 MG/DL N 6 5-110 Hematocrit September 05, 2014 5:46pm 41.3 % N 36-4 6 Hemoglobin September 05, 2014 5:46pm 13.3 GM/DL N 12- 16 Lymphocytes # (Auto) September 05, 2014 5:46pm 1.3 T/MM3 N 1-4.8 Lymphocytes (%) (Auto) September 05, 2014 5:46pm 21.5 % L 23-45 Mean Corpuscular Hemoglobin September 05, 2014 5:46pm 29.8 UU G N 26-34 Mean Corpuscular Hemoglobin Concent September 05, 2014 5:46 pm 32.2 GM/DL N 31-37 Mean Corpuscular Volume September 05, 2014 5:46pm 92.4 UM3 N 80-100 Mean Platelet Volume September 05, 2014 5:46pm 11.4 UM3 N 9.4-12.4 Monocytes # (Auto) September 05, 2014 5:46pm 0.4 T/MM3 N 0-0.8 Monocytes (%) (Auto) September 05, 2014 5:46pm 7.0 % N 0-9.0 Neutrophils # (Auto) September 05, 2014 5:46pm 4.1 T/MM3 N 1.8-7.7 Neutrophils (%) (Auto) September 05, 2014 5:46pm 68.4 % H 33-66 Platelet Count September 05, 2014 5:46pm 174 T/MM3 N 130-400 Potassium Level September 05, 2014 5:46pm 4.0 MEQ/L N 3.6-5 RDW Standard Deviation September 05, 2014 5:46pm 45.0 FL N 36.9-50.2 Red Blood Count September 05, 2014 5:46pm 4.47 M/MM3 N 4.00-5.20 Salicylates Level September 05, 2014 5:46pm < 1.0 MG/DL L 2-20 Sodium Level September 05, 2014 5:46pm 143 MEQ/L N 13 4-144 Total Bilirubin September 05, 2014 5:46pm 1.00 MG/DL N 0.20-1.30 Total Protein September 05, 2014 5:46pm 7.6 G/DL N 6 .3-8.2 Urine Bilirubin September 05, 2014 5:50pm Negative - Has specimen been collected/obtained? Y Urine Blood September 05, 2014 5:50pm Negative - Has specimen been collected/obtained? Y Urine Collection Type September 05, 2014 5:50pm Cleancatch-mi dstream - Has specimen been collected/obtained? Y Urine Color September 05, 2014 5:50pm Meghan - Has specimen been collected/obtained? Y Urine Glucose (UA) September 05, 2014 5:50pm Negative - Has specimen been collected/obtained? Y Urine Ketones September 05, 2014 5:50pm Negative - Has specimen been collected/obtained? Y Urine Leukocyte Esterase September 05, 2014 5:50pm Negative - Has specimen been collected/obtained? Y Urine Nitrite September 05, 2014 5:50pm Negative - Has specimen been collected/obtained? Y Urine Protein September 05, 2014 5:50pm Negative - Has specimen been collected/obtained? Y Urine Specific [place] September 05, 2014 5:50pm 1.015 - Has specimen been collected/obtained? Y Urine Turbidity September 05, 2014 5:50pm Clear - Has specimen been collected/obtained? Y Urine Urobilinogen September 05, 2014 5:50pm Normal EU/DL - Has specimen been collected/obtained? Y Urine pH September 05, 2014 5:50pm 6.0 - Has specimen been collected/obtained? Y White Blood Count September 05, 2014 5:46pm 6.0 T/MM3 N 4.5-11.0 Chemistry Specimen Hemolysis September 05, 2014 5:46pm < 15 0-25 0-25: No Hemolysis.26-70: Slight Hemolysis - can falsely elevate K and Urine Protein. 71-285: Moderate Hemolysis - can falsely elevate K, Troponin I, CA 19-9, PTH, CSF GLucose, and Urine Protein, and can falsely decrease Phenytoin. 286-999: Gross Hemolysis - can falsely e levate K, Troponin I, CA 19-9, PTH, CSF Glucose, and Urine Protine, and can falsely decrease Phenytoin. Recommend specimen recollection. Urinalysis Comment September 05, 2014 5:50pm Microscopic not ind. - Has specimen been collected/obtained? Y Lab Scanned Report September 11, 2014 3:49pm [facility] [id number] - Turbidity September 05, 2014 5:46pm < 20 0-20 Glomerular Filtration Rate Calc September 05, 2014 5:46pm 80 - Immature Granulocyte # (Auto) September 05, 2014 5:46pm 0.01 T/MM3 N 0.00-0.03 Immature Granulocyte % (Auto) September 05, 2014 5:46pm 0.2 % N 0.0-0.5 Icterus Index September 05, 2014 5:46pm < 2 0 -7 Procedures Procedure Status Date Provider(s) HYDRATE IV INFUSION ADD-ON completed 09/05/14 THER/PROPH/DIAG INJ IV PUSH completed 09/05/14 TX/PRO/DX INJ NEW DRUG ADDON completed 09/05/14 TX/PRO/DX INJ NEW DRUG ADDON completed 09/05/14 Encounters Encounter Location Date/Time Departed Emergency Room [facility] 10/24/14 7:13p m Departed Emergency Room [facility] 09/05/14 4:51p m Recent Diagnosis
--- OUTSIDE RECORDS SUMMARY | 2020-05-30 20:13 | XMS REPORT ---
Author Author Arlet SALDANA Organization [facility] Address [address] [place] [address] Care Team Providers Care Water Rights Specialist Name Role Phone PRINCESS SALDANA Unavailable PROBLEMS ALLERGIES No Known Allergies ENCOUNTERS IMMUNIZATIONS No Known Immunizations SOCIAL HISTORY No smoking Hx information available REASON FOR VISIT PLAN OF CARE VITAL SIGNS MEDICATIONS RESULTS No Results PROCEDURES No Known procedures INSTRUCTIONS MEDICATIONS ADMINISTERED No Known Medications MEDICAL (GENERAL) HISTORY
--- OUTSIDE RECORDS SUMMARY | 2020-05-30 20:13 | XMS REPORT ---
Author Arlet Ji Organization [facility] Address [address] [place] [address] [phone] Care Team Providers Care News Editor Name Role Phone Charito Garza Unavailable PROBLEMS Type Condition ICD9-CM Code [id number] Code Onset Dates Condition S tatus SNOMED Code Problem ADALBERTO (generalized anxiety disorder) F41.1 Active 91718171 Problem Major depressive disorder, recurrent episode, mild F33.0 Active 80325248 Problem PTSD (post-traumatic stress disorder) F43.10 Active [id number] ALLERGIES No Information ENCOUNTERS Encounter Location Date Diagnosis [facility] [address] [place] [address] [id number] Jan, [facility] [address] [place] [address] [id number] Dec, [facility] [address] [place] [address] [id number] Dec, [facility] [address] [place] [address] [id number] Nov, Chronic post-traumatic stress disorder (PTSD) F43.12 and Methamphetamine use disorder, severe, 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 [facility] [address] [id number] Nov, ADALBERTO (generalized anxiety disorder) F41.1 [facility] [address] [place] [address] [id number] Nov, [facility] [address] [place] [address] [id number] Nov, [facility] [address] [place] [address] [id number] Oct, [facility] [address] [place] [address] [id number] Oct, Encounter for screening for dental disorders Z13.84 [facility] [address] [place] [address] [id number] Oct, Major depressive disorder, recurrent episode, mild F33.0 and ADALBERTO (generalized anxiety disorder) F41.1 [facility] [address] [place] [address] [id number] Sep, [facility] [address] [place] [address] [id number] Sep, [facility] [address] [place] [address] [id number] Nov, [facility] [address] [place] [address] [id number] Oct, [facility] [address] [place] [address] [id number] Sep, [facility] [address] [place] [address] [id number] Sep, IMMUNIZATIONS No Known Immunizations SOCIAL HISTORY Never Assessed REASON FOR VISIT Medication not working PLAN OF CARE VITAL SIGNS MEDICATIONS Unknown Medications RESULTS No Results PROCEDURES No Known procedures INSTRUCTIONS MEDICATIONS ADMINISTERED No Known Medications MEDICAL (GENERAL) HISTORY Type Description Date Medical History Gorphobic Medical History Major depressive disorder, recurrent epi sode, mild Medical History ADALBERTO (generalized anxiety disorder) Medical History PTSD (post-traumatic stress disorder) Surgical History tubal ligation
--- OUTSIDE RECORDS SUMMARY | 2020-05-30 20:13 | XMS REPORT ---
Author Author Arlet Garza Organization [facility] Address [address] [place] [address] [phone] Care Team Providers Care Host/Hostess Head Name Role Phone Charito Garza Unavailable PROBLEMS Type Condition ICD9-CM Code [id number] Code Onset Dates Condition S tatus SNOMED Code Problem ADALBERTO (generalized anxiety disorder) F41.1 Active [id number] Problem Major depressive disorder, recurrent episode, mild F33.0 Active 56334627 Problem PTSD (post-traumatic stress disorder) F43.10 Active 23015262 ALLERGIES No Known Allergies ENCOUNTERS Encounter Location Date Diagnosis [facility] [address] [place] [address] [id number] Jan, [email or web address] [address] [place] [address] [id number] Oct, Encounter for screening for dental disorders Z13.84 [email or web address] [address] [place] [address] [id number] Oct, Major depressive disorder, recurrent episode, mild F33.0 and ADALBERTO (generalized anxiety disorder) F41.1 [email or web address] [address] [place] [address] [id number] Sep, [email or web address] [address] [place] [address] [id number] Sep, [email or web address] [address] [place] [address] [id number] Nov, [facility] [address] [place] [address] [id number] Oct, [facility] [address] [place] [address] [id number] Sep, [email or web address] [address] [place] [address] [id number] Sep, IMMUNIZATIONS No Known Immunizations SOCIAL HISTORY Never Assessed REASON FOR VISIT Patient lives in [place], [place]. States she is trying to get back on her medications. This is the soonest appt she was able to find. They are working on trying to get her into a community clinic where she lives. States she got out of halfway in [facility] 2016 PLAN OF CARE Activity Details Follow Up 3 Months Reason:anxiety/depr ession VITAL SIGNS Temperature 98.5 degrees Fahrenheit 2017-11-11 Heart Rate 99 /min 2017-11-11 Respiratory Rate 18 /min 2017-11-11 Oximetry 97 % 2017-11-11 Weight 168 lbs 2017-11-11 Height 60 in 2017-11-11 BMI 32.81 kg/m2 2017-11-11 Blood pressure systolic 123 mm Hg 2017-11-11 Blood pressure diastolic 85 mm Hg 2017-11-11 MEDICATIONS Medication Instructions Dosage Frequency Start Date End Date Duration S tatus Flonase Allergy Relief 50 mcg/actuation inhale 2 sprays (100 mcg) in each nostril by intranasal route once daily Sep, Active BusPIRone HCl 10 MG Orally three times a day 1 tablet 8h Sep, 16 30 days Active Fluoxetine HCl 40 MG Orally once a day 1 capsule in the morning 24h Oct, 30 days Active Trazodone HCl 100 MG Orally Once a day 1 tablet at bedtime 24h 0 Oct, 30 days Active Fluoxetine HCl 60 mg take 1 tablet (60 m g) by oral route once daily in the morning Oct, Active Trazodone HCl 150 mg ... ... Take 1 tab po qhs Oct, 017 Active BusPIRone HCl 15 mg Take one tablet (15m g) by mouth in the morning, two tablets (30mg) mid-day, and one tablet (15mg) in the evening Sep Active RESULTS No Results PROCEDURES No Known procedures INSTRUCTIONS MEDICATIONS ADMINISTERED No Known Medications MEDICAL (GENERAL) HISTORY Type Description Date Medical History Gorphobic Medical History Major depressive disorder, recurrent epi sode, mild Medical History ADALBERTO (generalized anxiety disorder) Medical History PTSD (post-traumatic stress disorder) Surgical History tubal ligation
--- OUTSIDE RECORDS SUMMARY | 2020-05-30 20:13 | XMS REPORT ---
Author Arlet Ji Organization [facility] Address [address] [place] [address] [phone] Care Team Providers Care Ultrasound Technologist Name Role Phone Charito Garza Unavailable PROBLEMS Type Condition ICD9-CM Code [id number] Code Onset Dates Condition S tatus SNOMED Code Problem ADALBERTO (generalized anxiety disorder) F41.1 Active 87974678 Problem Major depressive disorder, recurrent episode, mild F33.0 Active 46681307 Problem PTSD (post-traumatic stress disorder) F43.10 Active 12733040 ALLERGIES No Information ENCOUNTERS Encounter Location Date Diagnosis [facility] [address] [place] [address] [id number] Jan, [facility] [address] [place] [address] [id number] Dec, [facility] [address] [place] [address] [id number] Nov, [facility] [address] [place] [address] [id number] Nov, ADALBERTO (generalized anxiety disorder) F41.1 [facility] [address] [place] [address] [id number] Nov, [facility] [address] [place] [address] [id number] Nov, [facility] [address] [place] [address] [id number] Oct, [facility] [address] [place] [address] [id number] Oct, Encounter for screening for dental disorders Z13.84 [facility] [address] [place] [address] [id number] Oct, Major depressive disorder, recurrent episode, mild F33.0 and ADALBERTO (generalized anxiety disorder) F41.1 [facility] [address] [place] [address] [id number] Sep, [facility] [address] [place] [address] [id number] Sep, [facility] [address] [place] [address] [id number] Nov, [facility] [address] [place] [address] [id number] Oct, [facility] [address] [place] [address] [id number] Sep, [facility] [address] [place] [address] [id number] Sep, IMMUNIZATIONS No Known Immunizations SOCIAL HISTORY [...]
--- OUTSIDE RECORDS SUMMARY | 2020-05-30 20:13 | XMS REPORT ---
Author Author Arlet PUENTE PROVIDER Organization Unknown Address Unknown Phone Unavailable Care Team Providers Care Clinical Documentation Manager Name Role Phone MIGRATION, PROVIDER Unavailable Unavailable PROBLEMS Type Condition ICD9-CM Code [id number] Code Onset Dates Condition S tatus SNOMED Code Problem ADALBERTO (generalized anxiety disorder) F41.1 Active 97366702 Problem Major depressive disorder, recurrent episode, mild F33.0 Active 34086327 Problem PTSD (post-traumatic stress disorder) F43.10 Active 03051565 ALLERGIES No Information ENCOUNTERS Encounter Location Date Diagnosis [facility] [address] [place] [address] [id number] Jan, [facility] [address] [place] [address] [id number] Dec, [facility] [address] [id number] Dec, [facility] [address] [place] [address] [id number] Dec, [facility] [address] [place] [address] [id number] Nov, Chronic post-traumatic stress disorder (PTSD) F43.12 and Methamphetamine use disorder, severe, 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 [facility] [address] [id number] Nov, ADALBERTO (generalized anxiety disorder) F41.1 [facility] [address] [place] [address] [id number] Nov, [facility] [address] [place] [address] [id number] Nov, [facility] [address] [place] [address] [id number] Oct, [facility] [address] [place] [address] [id number] Oct, Encounter for screening for dental disorders Z13.84 [facility] [address] [place] [address] [id number] Oct, Major depressive disorder, recurrent episode, mild F33.0 and ADALBERTO (generalized anxiety disorder) F41.1 [facility] [address] [place] [address] [id number] Sep, [facility] [address] [place] [address] [id number] Sep, [facility] [address] [place] [address] [id number] Nov, [facility] [address] [place] [address] [id number] Oct, [facility] [address] [place] [address] [id number] Sep, [facility] [address] [place] [address] [id number] Sep, IMMUNIZATIONS No Known Immunizations SOCIAL HISTORY Never Assessed REASON FOR VISIT [facility] PLAN OF CARE VITAL SIGNS MEDICATIONS Medication [...] tablet (15mg) in the evening Sep Active Clonazepam 0.5 mg take 1 tablet by Oral route 3 times per day Nov, Active RESULTS No Results PROCEDURES No Known procedures INSTRUCTIONS MEDICATIONS ADMINISTERED No Known Medications MEDICAL (GENERAL) HISTORY Type Description Date Medical History Gorphobic Medical History Major depressive disorder, recurrent epi sode, mild Medical History ADALBERTO (generalized anxiety disorder) Medical History PTSD (post-traumatic stress disorder) Surgical History tubal ligation
--- OUTSIDE RECORDS SUMMARY | 2020-05-30 20:13 | XMS REPORT ---
Author Author Arlet Garza Organization [facility] Address [address] [place], [place] [phone] Care Team Providers Care Offal Baler Name Role Phone Charito Garza Unavailable PROBLEMS Type Condition ICD9-CM Code [id number] Code Onset Dates Condition S tatus SNOMED Code Problem ADALBERTO (generalized anxiety disorder) F41.1 Active 70255175 Problem Major depressive disorder, recurrent episode, mild F33.0 Active 38128615 Problem PTSD (post-traumatic stress disorder) F43.10 Active 11313707 ALLERGIES No Information SOCIAL HISTORY Never Assessed PLAN OF CARE VITAL SIGNS MEDICATIONS Unknown Medications RESULTS No Results PROCEDURES No Known procedures IMMUNIZATIONS No Known Immunizations MEDICAL (GENERAL) HISTORY Type Description Date Medical History Gorphobic Medical History Major depressive disorder, recurrent epi sode, mild Medical History ADALBERTO (generalized anxiety disorder) Medical History PTSD (post-traumatic stress disorder) Surgical History tubal ligation
--- OUTSIDE RECORDS SUMMARY | 2020-05-30 20:13 | XMS REPORT ---
Author Author Arlet NAVARRETE [facility] Address [address] [place] [address] Phone Unavailable Care Team Providers Care Garden Consultant Name Role Phone AURA NAVARRETE Unavailable Unavailable PROBLEMS ALLERGIES No Known Allergies ENCOUNTERS IMMUNIZATIONS No Known Immunizations SOCIAL HISTORY No smoking Hx information available REASON FOR VISIT PLAN OF CARE VITAL SIGNS MEDICATIONS RESULTS No Results PROCEDURES INSTRUCTIONS MEDICATIONS ADMINISTERED No Known Medications MEDICAL (GENERAL) HISTORY
--- OUTSIDE RECORDS SUMMARY | 2020-05-30 20:13 | XMS REPORT | Continuity of Care Document ---
Author Author [facility] Organization [facility] Address Unknown Phone Unavailable Support Name Relationship Address Phone ZAK DENISE Next Of Kin [address] [place] [address] Insurance Providers Payer Name Policy Number Subscriber Name Relationship Self Pay Eleanor Garcia 17 Self / Same As Patient Advance Directives Directive Response Recor ded Date Advanced Directives Unknown 05/30/13 8:24am Problems Medical Problem Onset Date Ankle pain 05/30/13 Dental caries 05/26/13 Toothache 04/12/13 Allergies, Adverse Reactions, Alerts Allergen Type Severity Reaction Last Updated No Known Drug Allergies 03/03/13 Medications Medication Dose Units Route Sig Qty Days Hydrocodone Bit/Acetaminophen (Ed- Lortab 5/500MG #6) 6 Tab PO Q4H 1 Hydrocodone Bit/Acetaminophen (Lortab 5 Mg) 1 Tab PO Q 4H PRN 15 Amoxicillin 500 Mg PO TID 10 Hydrocodone Bit/Acetaminophen (Lortab 5/500) 1 - 2 Each PO Q4H 20 Penicillin V Potassium 1 Mg PO Q6H 1 0 Ibuprofen (Motrin Ib) 4 Tab PO PRN Response Recorded Date/Time Status not known Unknown Results No Known Relevant Diagnostic Tests, Laboratory Data and/or Discharge Summary. Procedures Procedure Code Date EMERGENCY DEPT VISIT [id number] 03/03/13 EMERGENCY DEPT VISIT [id number] 04/12/13 [id number] 04/12/13 Encounters Encounter Location Date/ Time Departed Emergency Room [facility] 05/30/13 8:16am
--- OUTSIDE RECORDS SUMMARY | 2020-05-30 20:13 | XMS REPORT ---
Author Author Arlet PUENTE PROVIDER Organization Unknown Address Unknown Phone Unavailable Care Team Providers Care Linoleum Layer Helper Name Role Phone MIGRATION, PROVIDER Unavailable Unavailable PROBLEMS Type Condition ICD9-CM Code [id number] Code Onset Dates Condition S tatus SNOMED Code Problem ADALBERTO (generalized anxiety disorder) F41.1 Active 79667871 Problem Major depressive disorder, recurrent episode, mild F33.0 Active 91368343 Problem PTSD (post-traumatic stress disorder) F43.10 Active 49911703 ALLERGIES No Information ENCOUNTERS Encounter Location Date Diagnosis [facility] [address] [place] [address] [id number] Jan, [facility] [address] [place] [address] [id number] Dec, [facility] [address] [id number] Dec, [facility] [address] [place] [address] [id number] Dec, 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 [address] [phone] Nov, ADALBERTO (generalized anxiety disorder) F41.1 [facility] [address] [place] [address] [phone] Nov, [facility] [address] [place] [address] [phone] Nov, [facility] [address] [place] [address] [id number] Oct, [facility] [address] [place] [address] [id number] Oct, Encounter for screening for dental disorders Z13.84 [facility] [address] [place] [address] [phone] Oct, Major depressive disorder, recurrent episode, mild F33.0 and ADALBERTO (generalized anxiety disorder) F41.1 [facility] [address] [place] [address] [id number] Sep, [facility] [address] [place] [address] [phone] Sep, [facility] [address] [place] [address] [phone] Nov, [facility] [address] [place] [address] [phone] Oct, [facility] [address] [place] [address] [phone] Sep, [facility] [address] [place] [address] [phone] Sep, IMMUNIZATIONS No Known Immunizations SOCIAL HISTORY Never Assessed REASON FOR VISIT [facility] PLAN OF CARE VITAL SIGNS MEDICATIONS Unknown Medications RESULTS No Results PROCEDURES No Known procedures INSTRUCTIONS MEDICATIONS ADMINISTERED No Known Medications MEDICAL (GENERAL) HISTORY Type Description Date Medical History Gorphobic Medical History Major depressive disorder, recurrent epi sode, mild Medical History ADALBERTO (generalized anxiety disorder) Medical History PTSD (post-traumatic stress disorder) Surgical History tubal ligation
--- OUTSIDE RECORDS SUMMARY | 2020-05-30 20:13 | XMS REPORT | Continuity of Care Document ---
Author Author [facility] ter Organization [facility] Address Unknown Phone Unavailable Support Name Relationship Address Phone Layla Wilburn P.A.-C Caregiver [facility] [address] [place] [address] Gavin Patel DO Caregiver [address] [place] [address] GIGI GARCIA Next Of Kin [address] [place] [address] Insurance Providers Payer Name Policy Number Subscriber Name Relationship Self Pay Arlet Garcia 18 Self / Same A s Patient Chief Complaint and Reason for Visit Chief Complaint General Medical Complaints Reason for Visit Acute drug intoxication Anxiety Positive urine drug screen Problems Active Problems Medical Problem Onset Date Status Acute drug intoxication Unknown Acute Anxiety Unknown Acute Positive urine drug screen Unknown Acute Medications No known medications. Social History Query Response Start Date Stop Date Smoking Status Current every day smoker Hospital Discharge Instructions No hospital discharge instructions. Plan of Care Discharge Date 04/25/16 4:06am Disposition HOME, SELF-CARE Condition at Discharge Stable Instructions/Education Provided Adverse Drug Reaction (ED) Anxiety (ED) Forms Provided Patient Signature Page Prescriptions See Medication Section Additional Instructions/Education Patient was seen in ED on 04/25/16 at 0230 for listed diagnoses. home, rest, fluids DON'T DO DRUGS!!! follow up with planned inpatient treatment Functional Status No functional status results. Allergies, Adverse Reactions, Alerts No known allergies. Immunizations No immunization records. Vital Signs Acute Vital Signs Vital Response Date/Time Height 5 ft 0 in Weight 159 lb Body Mass Index 31.1 kg/m^2 Results Laboratory Results Test Name Result Units Flags Reference Collection Date/Time Result Date/Time Comments Urine Methamphetamines Screen Positive H NEGATIVE 04/25/2016 2:50am 04/25/2016 3:05am Urine Cocaine Screen Negative NEGATIVE 04/25/2016 2:50am 04/25/2016 3:05am Urine Cannabinoids Screen Positive H NEGATIVE 0 10/2015 2:50am 04/25/2016 3:05am Urine Methylenedioxymethamphetamine Positive H NEGA TIVE 04/25/2016 2:50am 04/25/2016 3:05am Urine Methadone Screen Negative NEGATIVE 016 2:50am 04/25/2016 3:05am Urine Opiates Screen Negative NEGATIVE 04/25/2016 2:50am 04/25/2016 3:05am Urine Benzodiazepines Screen Negative NEGATIVE 0 04/25/2016 2:50am 04/25/2016 3:05am Ur Tricyclic Antidepressants Screen Negative NEGA TIVE 04/25/2016 2:50am 04/25/2016 3:05am Urine Barbiturates Screen Negative NEGATIVE 10/2015 2:50am 04/25/2016 3:05am Urine Phencyclidine Screen Negative NEGATIVE 10/2015 2:50am 04/25/2016 3:05am Drug Screen Comment: This assay provides a preliminary unconfirmed analytical test result that may be suitable for the clinical management of patients in certain situations. This screen is for Medical Only and does not follow [id number]. Urine Amphetamines Screen Positive H NEGATIVE 10/2015 2:50am 04/25/2016 3:05am Urine Oxycodone Screen Positive H NEGATIVE 016 2:50am 04/25/2016 3:05am Procedures No known history of procedures. Encounters Encounter Location Arrival/Admit Date Discharge/Depart Date Attending Provider Registered Emergency Room [facility] 04/25/16 2:2 9am Layla Wilburn P.A.-C Departed Emergency Room [facility] 12/25/13 9: 04am 12/25/13 10:45am Neetu Cline Departed Emergency Room [facility] 12/17/13 11 :45am 12/17/13 12:20pm Michele Escobar Recent Diagnosis
--- OUTSIDE RECORDS SUMMARY | 2020-05-30 20:13 | XMS REPORT ---
Author Arlet Ji Organization [facility] Address [address] [place] [address] [phone] Care Team Providers Care Injector Assembler Name Role Phone Charito Garza Unavailable PROBLEMS Type Condition ICD9-CM Code [id number] Code Onset Dates Condition S tatus SNOMED Code Problem ADALBERTO (generalized anxiety disorder) F41.1 Active [id number] Problem Major depressive disorder, recurrent episode, mild F33.0 Active 22713716 Problem PTSD (post-traumatic stress disorder) F43.10 Active [id number] ALLERGIES No Known Allergies ENCOUNTERS Encounter Location Date Diagnosis [facility] [address] [place] [address] [phone] Jan, [facility] [address] [place] [address] [id number] Dec, [facility] [address] [place] [address] [phone] Nov, [facility] [address] [place] [address] [phone] Nov, ADALBERTO (generalized anxiety disorder) F41.1 [facility] [address] [place] [address] [phone] Nov, [facility] [address] [place] [address] [phone] Nov, [facility] [address] [place] [address] [id number] Oct, [facility] [address] [place] [address] [id number] Oct, Encounter for screening for dental disorders Z13.84 [facility] [address] [place] [address] [id number] Oct, Major depressive disorder, recurrent episode, mild F33.0 and ADALBERTO (generalized anxiety disorder) F41.1 [facility] [address] [place] [address] [id number] Sep, [facility] [address] [place] [address] [id number] Sep, [facility] [address] [place] [address] [phone] Nov, [facility] [address] [place] [address] [phone] Oct, [facility] [address] [place] [address] [id number] Sep, [facility] [address] [place] [address] [phone] Sep, IMMUNIZATIONS No Known Immunizations SOCIAL HISTORY Never Assessed REASON FOR VISIT Medication Refills PLAN OF CARE Activity Details Follow Up prn Reason: VITAL SIGNS Temperature 98.1 degrees Fahrenheit 2017-12-11 Heart Rate 84 /min 2017-12-11 Respiratory Rate 18 /min 2017-12-11 Oximetry 97 % 2017-12-11 Weight 178.3 lbs 2017-12-11 Height 60 in 2017-12-11 BMI 34.82 kg/m2 2017-12-11 Blood pressure systolic 133 mm Hg 2017-12-11 Blood pressure diastolic 86 mm Hg 2017-12-11 MEDICATIONS Medication Instructions Dosage Frequency Start Date End Date Duration S tatus Fluoxetine HCl 60 mg take 1 tablet (60 m g) by oral route once daily in the morning Oct, Active BusPIRone HCl 30 MG Orally Twice a day 1 tablet 12h Sep, 30 days Active Trazodone HCl 150 mg ... ... Take 1 tab po qhs Oct, 017 Active BusPIRone HCl 15 mg Take one tablet (15m g) by mouth in the morning, two tablets (30mg) mid-day, and one tablet (15mg) in the evening Sep Active Flonase Allergy Relief 50 mcg/actuation inhale 2 sprays (100 mcg) in each nostril by intranasal route once daily Sep, Active Fluoxetine HCl 40 MG Orally Once a day 2 capsule 24h Nov, 30 day(s) Active RESULTS No Results PROCEDURES No Known procedures INSTRUCTIONS MEDICATIONS ADMINISTERED No Known Medications MEDICAL (GENERAL) HISTORY Type Description Date Medical History Gorphobic Medical History Major depressive disorder, recurrent epi sode, mild Medical History ADALBERTO (generalized anxiety disorder) Medical History PTSD (post-traumatic stress disorder) Surgical History tubal ligation
--- OUTSIDE RECORDS SUMMARY | 2020-05-30 20:13 | XMS REPORT | Continuity of Care Document ---
Author Author [facility] Organization [facility] Address Unknown Phone Unavailable Support Name Relationship Address Phone ZAK DENISE Next Of Kin [address] [place] [address] Insurance Providers Payer Name Policy Number Subscriber Name Relationship Self Pay Arlet Garcia K 18 Self / Same As Patient Advance Directives Directive Response Recor ded Date Advanced Directives Unknown 10/02/13 7:21pm Problems Medical Problem Onset Date Acute otitis media 08/17/13 Ankle pain 05/30/13 Cough 10/02/13 Dental caries 05/26/13 Sore throat symptom 08/16/13 Toothache 04/12/13 Allergies, Adverse Reactions, Alerts Allergen Type Severity Reaction Last Updated No Known Drug Allergies 03/03/13 Medications Medication Dose Units Route Sig Qty Days Hydrocodone Bit/Acetaminophen (Lortab 5 Mg) 1 - 2 Tab PO Q6H 10 Amoxicillin 500 Mg PO TID 10 Tramadol Hcl 50 Mg PO Q6H PRN 15 Naproxen (Naprosyn) 500 Mg PO BID 20 Hydrocodone Bit/Acetaminophen (Ed- Lortab 5/500MG #6) 6 [...] Procedures Procedure Code Date EMERGENCY DEPT VISIT [id number] 03/03/13 EMERGENCY DEPT VISIT 85308 04/12/13 [id number] 04/12/13 EMERGENCY DEPT VISIT 77367 05/26/13 X-RAY EXAM OF ANKLE [id number] 05/30/13 EMERGENCY DEPT VISIT 30400 05/30/13 [id number] 05/30/13 EMERGENCY DEPT VISIT 75077 06/01/13 EMERGENCY DEPT VISIT 12537 08/16/13 Encounters Encounter Location Date/ Time Departed Emergency Room [facility] 10/02/13 7:19pm
--- OUTSIDE RECORDS SUMMARY | 2020-05-30 20:14 | XMS REPORT | Continuity of Care Document ---
Author Author [facility] Organization [facility] Address Unknown Phone Unavailable Support Name Relationship Address Phone BEN NESBITT DO Caregiver [address] [place] [address] TAWNY RIVERA Next Of Kin [address] [place] [id number] Insurance Providers Payer Name Policy Number Subscriber Name Relationship Self Pay Arlet Garcia 17 Self Problems Medical Problems Problem Onset Date Status Opioid withdrawal Unknown Active Heroin withdrawal Unknown Active Opioid withdrawal Unknown Active Methamphetamine abuse Unknown Active Medications Medication Dose Route Sig Days/Qty Instructions Order Date Disc ontinued Date Status Clonidine HCl 1 Tab PO DAILY 09/05/14 A ctive Prochlorperazine Maleate 10 Mg PO FOUR TIMES DAILY 2 Qty Take 1 tablet, by mouth, 4 times a day. 09/05/14 09/05/14 Discontinued Prochlorperazine Maleate 10 Mg PO FOUR TIMES DAILY 8 Qty 09/05/14 Active Social History Social History Problem Response Recorded Date/Christiano e Smoking Status Current every day smoker 09/05/2014 4:55 pm When did patient START smoking? 10-12 YEARS OLD 09/05/20 14 4:55pm Hospital Discharge Instructions No hospital discharge instructions. Plan of Care No plan of care. Functional Status Query Response Date Recorded Physical Hygiene Self September 05, 2014 4:55pm Disabilities None September 05, 2014 4:55pm Devices Used None September 05, 2014 4:55pm Dressing Self September 05, 2014 4:55pm Ambulation Self September 05, 2014 4:55pm Diet Self September 05, 2014 4:55pm Mental Status Alert Oriented September 05, 2014 7:06pm Disabilities None September 05, 2014 4:55pm Devices Used None September 05, 2014 4:55pm Physical Hygiene Self September 05, 2014 4:55pm Dressing Self September 05, 2014 4:55pm Ambulation Self September 05, 2014 4:55pm Diet Self September 05, 2014 4:55pm Allergies, Adverse Reactions, Alerts Allergen Type Severity Reaction Status Last Updated Penicillin Adverse Reaction Unknown Active 09/12/08 Immunizations Name Given Type Hx Influenza Vaccination No Historical Hx Influenza Vaccination No Historical Vital Signs Acute Vital Signs Vital Response Date/Time Temperature (Fahrenheit) 96.9 deg F (96.8 - 99.1) Temperature (Calculated Celsius) 36.43150 degrees C (36.0 - 37.3) Pulse Rate (adult) 92 bpm (60 - 100) Respiratory Rate 20 breaths/min (10 - 20) O2 Sat by Pulse Oximetry 100 % (90 - 100) Blood Pressure 124/80 mm Hg Height 5 ft 0 in Weight 134 lb Body Mass Index 26.0 kg/m^2 Results Test Source Date Result Interp. [...] Has specimen been collected/obtained? Y Urine Specific [place] September 05, 2014 5:50pm 1.015 - Has [...] ind. - Has specimen been collected/obtained? Y Turbidity September 05, 2014 5:46pm < 20 0-20 Glomerular Filtration Rate Calc September 05, 2014 5:46pm 80 - Immature Granulocyte # (Auto) September 05, 2014 5:46pm 0.01 T/MM3 N 0.00-0.03 Immature Granulocyte % (Auto) September 05, 2014 5:46pm 0.2 % N 0.0-0.5 Icterus Index September 05, 2014 5:46pm < 2 0 -7 Procedures No known history of procedures. Encounters Encounter Location Date/Time Departed Emergency Room [facility] 09/05/14 4:51p m Recent Diagnosis
--- OUTSIDE RECORDS SUMMARY | 2020-05-30 20:14 | XMS REPORT | Continuity of Care Document ---
Author Author [facility] Organization [facility] Address Unknown Phone Unavailable Support Name Relationship Address Phone ZAK DENISE Next Of Kin [address] [place] [address] Insurance Providers Payer Name Policy [...] Procedures Procedure Code Date EMERGENCY DEPT VISIT [id number] 03/03/13 EMERGENCY DEPT VISIT 27059 04/12/13 J2270 04/12/13 Encounters Encounter Location Date/ Time Departed Emergency Room [facility] 05/30/13 8:16am
--- OUTSIDE RECORDS SUMMARY | 2020-05-30 20:14 | XMS REPORT | Continuity of Care Document ---
Author Author [facility] Organization [facility] Address Unknown Phone Unavailable Support Name Relationship Address Phone FRANCHESCA ZHANG MD Caregiver [address] [place] [address] Unavailable TAWNY RIVERA Next Of Kin [address] [place] [address] Insurance Providers Payer Name Policy Number Subscriber Name Relationship Self Pay Arlet Nelson 17 Self Problems Medical Problems Problem Onset Date Status Opioid withdrawal Unknown Active Heroin withdrawal Unknown Active Opioid withdrawal Unknown Active Methamphetamine abuse Unknown Active Well adult exam Unknown Active Well adult exam Unknown Active Viral gastroenteritis Unknown Active Viral gastroenteritis Unknown Active Medications Medication Dose Route Sig [...] Recorded Date/Christiano e Hx Substance Use Y CLEAN SINCE 09/04/14 10/26/2014 10:41p m Hx Alcohol Use No 10/26/2014 10:41pm Tobacco Usage smoke 09/18/2014 2:38pm Query Response Start Date Stop Date Smoking Status Current every day smoker Hospital Discharge Instructions No hospital discharge instructions. Plan of Care No plan of care. Functional Status Query Response Date Recorded Physical Hygiene Self October 26, 2014 10:41pm Disabilities None October 26, 2014 10:41pm Devices Used None October 26, 2014 10:41pm Dressing Self October 26, 2014 10:41pm Ambulation Self October 26, 2014 10:41pm Diet Self October 26, 2014 10:41pm Mental Status Alert October 26, 2014 11:29pm Disabilities None October 26, 2014 10:41pm Devices Used None October 26, 2014 10:41pm Physical Hygiene Self October 26, 2014 10:41pm Dressing Self October 26, 2014 10:41pm Ambulation Self October 26, 2014 10:41pm Diet Self October 26, 2014 10:41pm Allergies, Adverse Reactions, Alerts Allergen Type Severity Reaction Status Last Updated Penicillin Adverse Reaction Unknown Active 10/26/14 Immunizations Name Given Type Hx Influenza Vaccination No Historical Hx Influenza Vaccination No Historical Vital Signs Acute Vital Signs Vital Response Date/Time Temperature (Fahrenheit) 97.6 deg F (96.8 - 99.1) Temperature (Calculated Celsius) 36.37643 degrees C (36.0 - 37.3) Pulse Rate (adult) 83 bpm (60 - 100) Respiratory Rate 16 breaths/min (10 - 20) O2 Sat by Pulse Oximetry 98 % (90 - 100) Blood Pressure 136/80 mm Hg Height 5 ft 2 in Weight 144 lb Body Mass Index 26.0 kg/m^2 Results Test Source Date Result Interp. Ref. Range Comments Acetaminophen Level September 05, 2014 5:46pm < 10 UG/ML L 10-30 TOXIC <4 HR POST INGESTION: >150 MG/L;TOXIC <12 HR POST INGESTION: >50 MG/L Alanine Aminotransferase (ALT/SGPT) October 26, 2014 10:38pm 34 U/L N 9-52 Albumin October 26, 2014 10:38pm 4.8 G/DL N 3.5-5 .0 Albumin/Globulin Ratio October 26, 2014 10:38pm 1.7 RATIO N 1.1-2.2 Alcohol, Quantitative September 05, 2014 5:46pm <10 MG/DL - Alkaline Phosphatase October 26, 2014 10:38pm 42 U/L N 38-126 Amylase Level October 26, 2014 10:38pm 82 U/L N 3 0-110 Anion Gap October 26, 2014 10:38pm 9 MEQ/L N 5-15 Aspartate Amino Transf (AST/SGOT) October 26, 2014 10:38pm 2 7 U/L N 14-36 BUN/Creatinine Ratio October 26, 2014 10:38pm 21 RATIO N 6-26 Basophils # (Auto) October 26, 2014 10:38pm 0.0 T/MM3 N 0-0.2 Basophils (%) (Auto) October 26, 2014 10:38pm 0.6 % N 0-2 Blood Urea Nitrogen October 26, 2014 10:38pm 17.0 MG/DL N 7-17 Calcium Level October 26, 2014 10:38pm 9.7 MG/DL N 8 .4-10.2 Calculated Osmolality October 26, 2014 10:38pm 273 MOSM/KG N 261-280 Carbon Dioxide Level October 26, 2014 10:38pm 26 MEQ/L N 22-30 Chloride Level October 26, 2014 10:38pm 106 MEQ/L N 98-107 Creatinine October 26, 2014 10:38pm 0.8 MG/DL N 0.7- 1.2 Eosinophils # (Auto) October 26, 2014 10:38pm 0.1 T/MM3 N 0-0.5 Eosinophils (%) (Auto) October 26, 2014 10:38pm 1.8 % N 0-4 Globulin October 26, 2014 10:38pm 2.9 G/DL N 2.4-3 .6 Glucose Level October 26, 2014 10:38pm 107 MG/DL N 6 5-110 Hematocrit October 26, 2014 10:38pm 41.5 % N 36-4 6 Hemoglobin October 26, 2014 10:38pm 13.5 GM/DL N 12- 16 Lipase October 26, 2014 10:38pm 152 U/L N 23-30 0 Lymphocytes # (Auto) October 26, 2014 10:38pm 1.7 T/MM3 N 1-4.8 Lymphocytes (%) (Auto) October 26, 2014 10:38pm 24.5 % N 23-45 Mean Corpuscular Hemoglobin October 26, 2014 10:38pm 31.0 UU G N 26-34 Mean Corpuscular Hemoglobin Concent October 26, 2014 10:38 pm 32.5 GM/DL N 31-37 Mean Corpuscular Volume October 26, 2014 10:38pm 95.4 UM3 N 80-100 Mean Platelet Volume October 26, 2014 10:38pm 10.6 UM3 N 9.4-12.4 Monocytes # (Auto) October 26, 2014 10:38pm 0.6 T/MM3 N 0-0.8 Monocytes (%) (Auto) October 26, 2014 10:38pm 8.3 % N 0-9.0 Neutrophils # (Auto) October 26, 2014 10:38pm 4.4 T/MM3 N 1.8-7.7 Neutrophils (%) (Auto) October 26, 2014 10:38pm 64.7 % N 33-66 Platelet Count October 26, 2014 10:38pm 174 T/MM3 N 130-400 Potassium Level October 26, 2014 10:38pm 4.2 MEQ/L N 3.6-5 RDW Standard Deviation October 26, 2014 10:38pm 49.2 FL N 36.9-50.2 Red Blood Count October 26, 2014 10:38pm 4.35 M/MM3 N 4.00-5.20 Salicylates Level September 05, 2014 5:46pm < 1.0 MG/DL L 2-20 Sodium Level October 26, 2014 10:38pm 141 MEQ/L N 13 4-144 Total Bilirubin October 26, 2014 10:38pm 0.60 MG/DL N 0.20-1.30 Total Protein October 26, 2014 10:38pm 7.7 G/DL N 6 .3-8.2 Urine Bilirubin October 26, 2014 11:15pm Negative - Has specimen been collected/obtained? Y Urine Blood October 26, 2014 11:15pm Negative - Has specimen been collected/obtained? Y Urine Collection Type October 26, 2014 11:15pm Voided-not cc -midstr - Has specimen been collected/obtained? Y Urine Color October 26, 2014 11:15pm Yellow - Has specimen been collected/obtained? Y Urine Glucose (UA) October 26, 2014 11:15pm Negative - Has specimen been collected/obtained? Y Urine Ketones October 26, 2014 11:15pm Negative - Has specimen been collected/obtained? Y Urine Leukocyte Esterase October 26, 2014 11:15pm Negative - Has specimen been collected/obtained? Y Urine Nitrite October 26, 2014 11:15pm Negative - Has specimen been collected/obtained? Y Urine Protein October 26, 2014 11:15pm Negative - Has specimen been collected/obtained? Y Urine Specific [place] October 26, 2014 11:15pm 1.020 - Has specimen been collected/obtained? Y Urine Turbidity October 26, 2014 11:15pm Clear - Has specimen been collected/obtained? Y Urine Urobilinogen October 26, 2014 11:15pm 0.2 EU/DL - Has specimen been collected/obtained? Y Urine pH October 26, 2014 11:15pm 6.0 - Has specimen been collected/obtained? Y White Blood Count October 26, 2014 10:38pm 6.7 T/MM3 N 4.5-11.0 Chemistry Specimen Hemolysis October 26, 2014 10:38pm < 15 0-25 0-25: No Hemolysis.26-70: Slight [...] decrease Phenytoin. Recommend specimen recollection. Urinalysis Comment October 26, 2014 11:15pm Microscopic not ind. - Has specimen been collected/obtained? Y Lab Scanned Report September 11, 2014 3:49pm [id number] - Turbidity October 26, 2014 10:38pm < 20 0-20 Glomerular Filtration Rate Calc October 26, 2014 10:38pm 80 - Immature Granulocyte # (Auto) October 26, 2014 10:38pm 0.01 T/MM3 N 0.00-0.03 Immature Granulocyte % (Auto) October 26, 2014 10:38pm 0.1 % N 0.0-0.5 Icterus Index October 26, 2014 10:38pm < 2 0 -7 Procedures Procedure Status Date Provider(s) HYDRATE IV INFUSION ADD-ON completed 09/05/14 THER/PROPH/DIAG INJ IV PUSH completed 09/05/14 TX/PRO/DX INJ NEW DRUG ADDON completed 09/05/14 TX/PRO/DX INJ NEW DRUG ADDON completed 09/05/14 Encounters Encounter Location Date/Time Departed Emergency Room [facility] 10/26/14 10:05 pm Departed Emergency Room [facility] 10/24/14 7:13p m Departed Emergency Room [facility] 09/05/14 4:51p m Recent Diagnosis
--- OUTSIDE RECORDS SUMMARY | 2020-05-30 20:14 | XMS REPORT | Continuity of Care Document ---
Author Author [facility] Organization [facility] Address Unknown Phone Unavailable Support Name Relationship Address Phone ZAK DENISE Next Of Kin [address] [place] [address] Insurance Providers Payer Name Policy Number Subscriber Name Relationship Self Pay Eleanor Garcia 17 Self / Same As Patient Advance Directives Directive Response Recor ded Date Advanced Directives No 0 06/01/13 3:45pm Problems Medical Problem Onset Date Ankle pain 05/30/13 Dental caries 05/26/13 Toothache 04/12/13 Allergies, Adverse Reactions, Alerts Allergen Type Severity Reaction Last Updated No Known Drug Allergies 03/03/13 Medications Medication Dose Units Route Sig Qty Days Tramadol Hcl 50 Mg PO Q6H PRN [...] Procedures Procedure Code Date EMERGENCY DEPT VISIT [id number] 03/03/13 EMERGENCY DEPT VISIT [id number] 04/12/13 [id number] 04/12/13 EMERGENCY DEPT VISIT [id number] 05/26/13 Encounters Encounter Location Date/ Time Departed Emergency Room [facility] 06/01/13 4:01pm
--- OUTSIDE RECORDS SUMMARY | 2020-05-30 20:14 | XMS REPORT | Continuity of Care Document ---
Author Author [facility] Organization [facility] Address Unknown Phone Unavailable Support Name Relationship Address Phone ZAK DENISE Next Of Kin [address] [place] [address] Insurance Providers Payer Name Policy Number Subscriber Name Relationship Self Pay Arlet Garcia 17 Self / Same As Patient Advance Directives Directive Response Recor ded Date Advanced Directives No 1 3:52pm Problems Medical Problem Onset Date Ankle pain 05/30/13 Dental caries 05/26/13 Sore throat symptom 08/16/13 [...] Procedures Procedure Code Date EMERGENCY DEPT VISIT [id number] 03/03/13 EMERGENCY DEPT VISIT 82175 04/12/13 [id number] 04/12/13 EMERGENCY DEPT VISIT [id number] 05/26/13 X-RAY EXAM OF ANKLE [id number] 05/30/13 EMERGENCY DEPT VISIT 83528 05/30/13 [id number] 05/30/13 EMERGENCY DEPT VISIT [id number] 06/01/13 Encounters Encounter Location Date/ Time Departed Emergency Room [facility] 08/16/13 3:54pm
[2020-05-30] MEDS ORDERED: NS IV 1000 ML 1,000 ML ONE (20:30)
[2020-05-30 21:45] LABS: BASOPHILS % (AUTO) 0 % (0-10); EOSINOPHILS % (AUTO) 0 % (0-10); HEMATOCRIT 40 % (35-52); HEMOGLOBIN 12.9 G/DL (11.5-16.0); LYMPHOCYTES % (AUTO) 10 % (12-44); MEAN CORPUSCULAR HEMOGLOBIN 31 PG (25-34); MEAN CORPUSCULAR HGB CONC 32 G/DL (32-36); MEAN CORPUSCULAR VOLUME 95 FL (80-99); MEAN PLATELET VOLUME 11.8 FL (7.4-10.4); MONOCYTES # (AUTO) 0.7 X 10^3 (0.0-1.0); MONOCYTES % (AUTO) 7 % (0-12); NEUTROPHILS % (AUTO) 82 % (42-75); PLATELET COUNT 184 10^3/uL (130-400); RED CELL DISTRIBUTION WIDTH 13.5 % (10.0-14.5); WHITE BLOOD COUNT 9.7 10^3/uL (4.3-11.0)
[2020-05-30] MEDS ORDERED: ACETAMINOPHEN 500 MG TAB (TYLENOL) PO STA (21:59)
[2020-05-30] MEDS ORDERED: KETOROLAC 30 MG/ML VIAL IVP STA (21:59)
[2020-05-30 22:04] LABS: ALANINE AMINOTRANSFERASE 14 U/L (0-55); ALBUMIN 3.8 GM/DL (3.2-4.5); ALKALINE PHOSPHATASE 61 U/L (40-136); BILIRUBIN,TOTAL 0.6 MG/DL (0.1-1.0); BUN/CREATININE RATIO 10; CALCIUM 8.9 MG/DL (8.5-10.1); CARBON DIOXIDE 21 MMOL/L (21-32); CHLORIDE 104 MMOL/L (98-107); CREATININE SERUM 0.78 MG/DL (0.60-1.30); GFR ESTIMATED > 60; GLUCOSE 89 MG/DL (70-105); MAGNESIUM 1.6 MG/DL (1.6-2.4); POTASSIUM 3.4 MMOL/L (3.6-5.0); SODIUM 136 MMOL/L (135-145); TOTAL PROTEIN 7.2 GM/DL (6.4-8.2)
--- NOTE | 2020-05-30 22:07 | ED General ---
General Chief Complaint: Cough/Cold/Flu Symptoms Stated Complaint: DEHYDRATION, BODY ACHES, LBP, COUGH Source of Information: Patient Exam Limitations: No Limitations History of Present Illness Date Seen by Provider: May 30, 2020 Time Seen by Provider: 21:27 Initial Comments Here with report of cough, fever, body aches, shortness of breath and overall not feeling well for the last few days. Does admit that she has been using methamphetamine via injection and has spent a lot of time at the [facility] and in the community. She is currently homeless. Reports that she had fever today. Does report nausea and diarrhea as well as fatigue. Unsure of specific contact with COVID-19. Timing/Duration: 2-3 Days, Getting Worse Severity: Moderate Associated Systoms: Cough, Fever/Chills, Headaches, Malaise, Nausea/Vomiting, Shortness of Air, Weakness Allergies and Home Medications Allergies Coded Allergies: No Known Drug Allergies (Unverified , 05/30/20) Patient Home Medication List Home Medication List Reviewed: Yes Review of Systems Review of Systems Constitutional: see HPI, chills, fever, weakness EENTM: nose congestion, throat pain Respiratory: cough, short of breath Cardiovascular: no symptoms reported Gastrointestinal: diarrhea, nausea Genitourinary: no symptoms reported Musculoskeletal: back pain, muscle pain Skin: no symptoms reported Psychiatric/Neurological: Anxiety, Headache All Other Systems Reviewed Negative Unless Noted: Yes Past Sotnvtq-Ustysi-Gqtsgl Hx Past Med/Social Hx: Reviewed Nursing Past Med/Soc Hx Patient Social History Alcohol Use: Occasionally Uses Recreational Drug Use: Yes (methamphetamine) Smoking Status: Current Everyday Smoker Recent Foreign Travel: No Contact w/Someone Who Travel: No Past Medical History Surgeries: Yes Tubal Ligation Respiratory: No Cardiac: No Neurological: No : No Genitourinary: No Gastrointestinal: No Musculoskeletal: No HEENT: No Cancer: No Family Medical History Reviewed Nursing Family Hx No Pertinent Family Hx Physical Exam-Suspected Sepsis Physical Exam Vital Signs Capillary Refill : Height, Weight, BMI Height: '" Weight: lbs. oz. kg; BMI Method: General Appearance: No Apparent Distress, WD/WN HEENT: PERRL/EOMI, Pharyngeal Erythema Neck: Non Tender, Supple Respiratory: Lungs Clear, Normal Breath Sounds Cardiovascular: Regular Rate, Rhythm, No Murmur Gastrointestinal: Non Tender, Soft Back: Normal Inspection, No CVA Tenderness, No Vertebral Tenderness Extremity: Normal Range of Motion, Non Tender Neurologic/Psychiatric: Alert, Oriented x3 Skin: normal color, warm/dry Focused Exam Lactate Level 05/30/20 22:45: Lactic Acid Level 0.65 Lactic Acid Level Laboratory Tests Test 05/30/20 22:45 Lactic Acid Level 0.65 MMOL/L (0.50-2.00) Progress/Results/Core Measures Suspected Sepsis SIRS Temperature: Pulse: Respiratory Rate: Laboratory Tests 05/30/20 21:20: White Blood Count 9.7 Blood Pressure / Mean: 05/30/20 22:45: Lactic Acid Level 0.65 Laboratory Tests 05/30/20 21:20: Creatinine 0.78, Platelet Count 184, Total Bilirubin 0.6 Results/Orders Lab Results Laboratory Tests Test 05/30/20 21:20 05/30/20 22:11 05/30/20 22:45 05/30/20 23:30 Range/Units White Blood Count 9.7 4.3-11.0 10^3/uL Red Blood Count 4.22 L 4.35-5.85 10^6/uL Hemoglobin 12.9 11.5-16.0 G/DL Hematocrit 40 35-52 % Mean Corpuscular Volume 95 80-99 FL Mean Corpuscular Hemoglobin 31 25-34 PG Mean Corpuscular Hemoglobin Concent 32 32-36 G/DL Red Cell Distribution Width 13.5 10.0-14.5 % Platelet Count 184 130-400 10^3/uL Mean Platelet Volume 11.8 H 7.4-10.4 FL Neutrophils (%) (Auto) 82 H 42-75 % Lymphocytes (%) (Auto) 10 L 12-44 % Monocytes (%) (Auto) 7 0-12 % Eosinophils (%) (Auto) 0 0-10 % Basophils (%) (Auto) 0 0-10 % Neutrophils # (Auto) 8.0 H 1.8-7.8 X 10^3 Lymphocytes # (Auto) 1.0 1.0-4.0 X 10^3 Monocytes # (Auto) 0.7 0.0-1.0 X 10^3 Eosinophils # (Auto) 0.0 0.0-0.3 10^3/uL Basophils # (Auto) 0.0 0.0-0.1 10^3/uL Erythrocyte Sedimentation Rate 22 H 0-20 MM/HR D-Dimer 2.32 H 0.00-0.49 UG/ML Sodium Level 136 135-145 MMOL/L Potassium Level 3.4 L 3.6-5.0 MMOL/L Chloride Level 104 98-107 MMOL/L Carbon Dioxide Level 21 21-32 MMOL/L Anion Gap 11 5-14 MMOL/L Blood Urea Nitrogen 8 7-18 MG/DL Creatinine 0.78 0.60-1.30 MG/DL Estimat Glomerular Filtration Rate > 60 BUN/Creatinine Ratio 10 Glucose Level 89 70-105 MG/DL Calcium Level 8.9 8.5-10.1 MG/DL Corrected Calcium 9.1 8.5-10.1 MG/DL Magnesium Level 1.6 1.6-2.4 MG/DL Total Bilirubin 0.6 0.1-1.0 MG/DL Aspartate Amino Transf (AST/SGOT) 20 5-34 U/L Alanine Aminotransferase (ALT/SGPT) 14 0-55 U/L Alkaline Phosphatase 61 40-136 U/L Lactate Dehydrogenase 232 H 125-220 U/L C-Reactive Protein High Sensitivity 9.91 H 0.00-0.50 MG/DL Total Protein 7.2 6.4-8.2 GM/DL Albumin 3.8 3.2-4.5 GM/DL Procalcitonin 0.05 <0.10 NG/ML Troponin I < 0.028 <0.028 NG/ML Lactic Acid Level 0.65 0.50-2.00 MMOL/L Urine Color YELLOW Urine Clarity CLEAR Urine pH 6.0 5-9 Urine Specific [place] 1.020 1.016-1.022 Urine Protein NEGATIVE NEGATIVE Urine Glucose (UA) NEGATIVE NEGATIVE Urine Ketones TRACE H NEGATIVE Urine Nitrite NEGATIVE NEGATIVE Urine Bilirubin NEGATIVE NEGATIVE Urine Urobilinogen 0.2 < = 1.0 MG/DL Urine Leukocyte Esterase NEGATIVE NEGATIVE Urine RBC (Auto) 1+ H NEGATIVE Urine RBC 2-5 H /HPF Urine WBC 0-2 /HPF Urine Squamous Epithelial Cells 5-10 /HPF Urine Crystals NONE /LPF Urine Bacteria TRACE /HPF Urine Casts NONE /LPF Urine Mucus MODERATE H /LPF Urine Culture Indicated NO My Orders Orders - GOLDEN VICENTE MD Ns Iv 1000 Ml (Sodium Chloride 0.9%) (05/30/20 20:30) Cbc With Automated Diff (05/30/20 21:32) Comprehensive Metabolic Panel (05/30/20 21:32) Hs C Reactive Protein (05/30/20 21:32) Magnesium (05/30/20 21:32) Ua Culture If Indicated (05/30/20 21:32) Fibrin Degradation Products (05/30/20 21:32) Procalcitonin (Pct) (05/30/20 21:32) Erythrocyte Sedimentation Rate (05/30/20 21:32) LDH (05/30/20 21:32) Chest 1 View, Ap/Pa Only (05/30/20 21:32) Acetaminophen Tablet (Tylenol Tablet) (05/30/20 21:59) Ketorolac Injection (Toradol Injection) (05/30/20 21:59) General/Regular (05/30/20 Dinner) Lactic Acid Analyzer (05/30/20 22:11) Troponin I (05/30/20 22:11) Blood Culture (05/30/20 22:11) Enoxaparin Injection (Lovenox Injection) (05/30/20 23:30) Dexamethasone Tablet (Decadron Tablet) (05/30/20 23:30) Coronavirus Sars-Cov-2 So 2018 (05/30/20 23:27) Medications Given in ED Current Medications Medications Dose Ordered Sig/Frieda Route Start Time Stop Time Status Last Admin Dose Admin Enoxaparin Sodium 40 mg ONCE ONCE SC 05/30/20 23:30 05/30/20 23:31 DC 05/30/20 23:55 40 MG Sodium Chloride 1,000 ml @ ud STK-MED ONCE .ROUTE 05/30/20 20:30 05/30/20 20:34 DC 05/30/20 21:20 999 MLS/HR Vital Signs/I&O 05/31/20 00:00 Intake Total 1000 ml Balance 1000 ml Capillary Refill : Progress Note : Progress Note Seen and evaluated. IV, labs, UA, chest x-ray, EKG, normal saline 1 L bolus ordered. Monitor patient. 2210: We have added blood cultures, lactic acid and COVID swab as her laboratory findings would indicate COVID-19 infection. Toradol 30 mg IV and Tylenol 1 g by mouth ordered. Monitor patient. 2315: All findings consistent and concerning for COVID-19 and infection. D-dimer elevated with normal white count and grossly elevated CRP. Patient is homeless. We do need to monitor for worsening infection. I did discuss the case with Dr. Alcala and she accepts patient for admission, inpatient status. Decadron 6 mg by mouth and Lovenox 40 mg subcutaneous now. We will continue those daily. Findings and concerns discussed with the patient who agrees with plan. ECG Initial ECG Impression Date: May 30, 2020 Initial ECG Impression Time: 21:01 Initial ECG Rate: 82 Initial ECG Rhythm: Normal Sinus Initial ECG Comparisson: No Previous ECG Available Comment Sinus rhythm with probable left atrial abnormality. No evidence of ST elevation MA. No previous available for comparison. Interpreted by me. Diagnostic Imaging Diagonstic Imaging: Xray Plain Films/CT/US/NM/MRI: chest Comments Question left lower lobe infiltrate Reviewed: Reviewed by Me Departure Communication (Admissions) Time/Spoke to Admitting Phy: 23:20 Impression Primary Impression: Left lower lobe pulmonary infiltrate Additional Impression: COVID-19 evaluation Disposition: ADMITTED INPATIENT Condition: Stable Admissions Decision to Admit Reason: Admit from ER (General) Decision to Admit/Date: May 30, 2020 Time/Decision to Admit Time: 23:20 Departure-Patient Inst. Referrals: NO,LOCAL PHYSICIAN (PCP/Family) Primary Care Physician GOLDEN VICENTE MD May 30, 2020 22:07
[2020-05-30 22:09] LABS: ERYTHROCYTE SEDIMENTATION RATE 22 MM/HR (0-20)
[2020-05-30] MEDS ORDERED: dexAMETHasone 6 MG TAB (DECADRON) PO SCH (23:30)
[2020-05-30] MEDS ORDERED: ENOXAPARIN 40 MG/0.4 ML (LOVENOX) SYR SC ONE (23:30)
[2020-05-30 23:38] LABS: BILIRUBIN,URINE NEGATIVE (NEGATIVE); CLARITY,URINE CLEAR; COLOR,URINE YELLOW; GLUCOSE, URINE (UA) NEGATIVE (NEGATIVE); KETONES,URINE TRACE (NEGATIVE); LEUKOCYTE ESTERASE ,URINE NEGATIVE (NEGATIVE); NITRITE,URINE NEGATIVE (NEGATIVE); PROTEIN,URINE NEGATIVE (NEGATIVE)
[2020-05-30 23:47] LABS: BACTERIA,URINE TRACE /HPF; WBC,URINE 0-2 /HPF
[2020-05-31 01:30] VITALS: BP 139/89
[2020-05-31] MEDS ORDERED: LACTATED RINGERS 1,000 ML IV ONE (02:09)
[2020-05-31 02:25] LABS: AMPHETAMINE SCREEN, URINE POSITIVE (NEGATIVE); BARBITURATE SCREEN URINE NEGATIVE (NEGATIVE); BENZODIAZEPINES SCREEN URINE POSITIVE (NEGATIVE); CANNABINOID SCREEN, URINE POSITIVE (NEGATIVE); COCAINE SCREEN URINE NEGATIVE (NEGATIVE); METHADONE STAT NEGATIVE (NEGATIVE); METHAMPHETAMINE SCREEN URINE S POSITIVE (NEGATIVE); OPIATE SCREEN URINE NEGATIVE (NEGATIVE); OXYCODONE STAT NEGATIVE (NEGATIVE); PROPOXYPHENE STAT NEGATIVE (NEGATIVE); TRICYCLIC ANTIDEPRESSANTS SCRE NEGATIVE (NEGATIVE)
[2020-05-31] MEDS: LACTATED RINGERS 1,000 ML IV SCH ×3 (03:00→20:47)
[2020-05-31 03:53] VITALS: BP 126/68
--- NOTE | 2020-05-31 05:32 | Diagnostic Imaging Report ---
INDICATION: BREATHING PROBLEMS COMPARISON: None FINDINGS: Single frontal view of the chest demonstrates normal heart size and pulmonary vascularity. The lungs are well aerated and clear. No large pleural effusion or pneumothorax is seen. Small micronodular densities noted within the lateral right base and measures 6 mm. The visualized osseous structures show no acute abnormalities. IMPRESSION: 1. No acute cardiopulmonary process. 2. Possible micronodule within the lateral right base. Correlation with CT is recommended. Dictated by: Dictated on workstation # [id number]
[2020-05-31 08:00] VITALS: BP 124/80
[2020-05-31] MEDS: dexAMETHasone 6 MG TAB (DECADRON) PO SCH (09:17)
[2020-05-31] MEDS: IBUPROFEN 600 MG (MOTRIN) TAB PO PRN ×2 (09:39→16:57)
[2020-05-31] MEDS: ACETAMINOPHEN 500 MG TAB (TYLENOL) PO PRN ×2 (09:39→16:57)
[2020-05-31] MEDS ORDERED: NICOTINE 21 MG (NICODERM) PATCH ONE (09:40)
[2020-05-31] MEDS ORDERED: NICOTINE 21 MG (NICODERM) PATCH TD ONE (09:45)
[2020-05-31 09:49] LABS: BUN/CREATININE RATIO 13; CALCIUM 8.5 MG/DL (8.5-10.1); CARBON DIOXIDE 18 MMOL/L (21-32); CHLORIDE 108 MMOL/L (98-107); CREATININE SERUM 0.76 MG/DL (0.60-1.30); GFR ESTIMATED > 60; GLUCOSE 229 MG/DL (70-105); MAGNESIUM 1.8 MG/DL (1.6-2.4); SODIUM 138 MMOL/L (135-145)
--- NOTE | 2020-05-31 11:06 | NUR ---
CM/SS: Visited with pt (Via telephone due to COVID person under investigation) as to her registration information as the face sheet did not have any information on it from registration. Pt also reported she was homeless Plan: Undetermined at this time. Pt reports being homeless and has been staying with friends. Summary: Pt is able to provide this worker with information to complete the registration. [facility], and most recently was living in transitional housing. Pt was evicted as she did not get a job and she also was using meth. Pt reports she was living with a friend and they had a falling out and she no longer has a temporary place to stay. Pt has the idea of returning to [facility] and then to the [facility]. She has no family in town, and reports they all live in [place]. Pt reports no one wants to be around her or she has no where to go as she is may have COVID. Discuss other services for the homeless in the area. Pt verbalizes understanding. This worker will update registration based on information given by patient. This worker will follow up.
[2020-05-31 12:00] VITALS: BP 134/87
[2020-05-31] MEDS ORDERED: FLUO20CA42 PO (14:33)
[2020-05-31] MEDS ORDERED: FLUO40CA12 PO (14:33)
[2020-05-31] MEDS ORDERED: TRAZ150T72 PO (14:33)
[2020-05-31] MEDS ORDERED: IBUP-2185 PO (14:33)
[2020-05-31] MEDS ORDERED: ACET325C7 PO (14:33)
[2020-05-31] MEDS ORDERED: BUSP15TA60 PO (14:33)
--- NOTE | 2020-05-31 14:34 | NUR ---
SPOKE WITH THE PT (I CALLED HER ROOM PHONE) AND CALLED [facility] TO COMPLETE THE MED REC LEVY MARTÍNEZ [facility] LET ME KNOW THE LAST TIME SHE HAD AN APPT AND RECEIVED MEDICATIONS WAS 03-27-2020 AND ALL THE MEDS SHE GOT 30 DAYS SUPPLY. I DID INCLUDE HER MEDS (FLUOXETINE, BUSPAR AND TRAZODONE) TO THE MED REC ALONG WITH THE PAST DUE FILL DATE FLUOXETINE: PT TAKES 20MG AND 40MG TO EQUAL 60 MG DAILY OTC MEDS: IBUPROFEN TYLENOL
--- NOTE | 2020-05-31 14:39 | History & Physical-Hospitalist ---
History of Present Illness HPI/Chief Complaint Arlet Nelson is a 44-year-old female who presented with general malaise. She reports that she has been using IV methamphetamine. Her review of systems is essentially naqvi-positive. She reports having fevers and chills. She reports having chest pain. She reports having shortness of breath and cough. She reports having abdominal pain. She reports nausea and vomiting. She reports back pain. It is unclear how reliable this history is given her methamphetamine intoxication. Source: patient Exam Limitations: intoxication Date Seen 05/31/20 Time Seen by a Provider: 09:00 Attending Physician Shyanne Alcala DO PCP No,Local Physician Referring Physician Date of Admission May 31, 2020 at 00:00 Home Medications & Allergies Home Medications Reviewed patient Home Medication Reconciliation performed by pharmacy medication reconciliations electrical mechanical technician and/or nursing. Patients Allergies have been reviewed. Allergies Allergies Coded Allergies No Known Drug Allergies (Unverified05/30/20) Past Rryibst-Qutvcc-Fbvxhe Hx Past Med/Social Hx: Reviewed Nursing Past Med/Soc Hx Patient Social History Alcohol Use: Occasionally Uses Recreational Drug Use: Yes (methamphetamine) Drug of Choice: meth Smoking Status: Current Everyday Smoker Recent Foreign Travel: No Contact w/other who traveled: No Recent Hopitalizations: No Recent Infectious Disease Expo: No Immunizations Up To Date Tetanus Booster (TDap): More than 5yrs Seasonal Allergies Seasonal Allergies: No Past Medical History Surgeries: Tubal Ligation : No Psychosocial: Anxiety, Depression History of Blood Disorders: No Family History Reviewed Nursing Family Hx Drug abuse 19 FATHER 19 MOTHER G8 BROTHER G8 BROTHER G8 SISTER G8 SISTER No Pertinent Family Hx Review of Systems Constitutional: chills, fever, malaise Respiratory: cough, short of breath Cardiovascular: chest pain Gastrointestinal: abdominal pain, nausea, vomiting Genitourinary: no symptoms reported Musculoskeletal: back pain Skin: rash Psychiatric/Neurological: Emotional Problems Physical Exam Physical Exam Vital Signs Vital Signs - First Documented Capillary Refill : Less Than 3 Seconds Height, Weight, BMI Height: '" Weight: lbs. oz. kg; 32.00 BMI Method: General Appearance: No Apparent Distress, Obese, Other (Disheveled, poor hygiene) HEENT: PERRL/EOMI, Pharynx Normal Neck: Normal Inspection, Supple Respiratory: Lungs Clear, Normal Breath Sounds, No Respiratory Distress Cardiovascular: Regular Rate, Rhythm, No Edema, No Murmur Gastrointestinal: Normal Bowel Sounds, Non Tender, Soft Back: No CVA Tenderness, Other (Paraspinal muscle tenderness) Extremity: Normal Inspection, Non Tender, No Pedal Edema Neurologic/Psychiatric: Alert, Oriented x3, No Motor/Sensory Deficits, Normal Mood/Affect Skin: Normal Color, Warm/Dry Results Results/Procedures Labs Laboratory Tests 05/30/20 21:20 05/31/20 09:20 Patient resulted labs reviewed. Imaging: Reviewed Imaging Report Assessment/Plan Admission Diagnosis Methamphetamine intoxication Admission Status: Inpatient Order (span 2 midnights) Reason for Inpatient Admission: Possible pneumonia Assessment and Plan Methamphetamine intoxication Possible pneumonia COVID PUI Pulmonary nodule Toxicology positive for amphetamines Chest x-ray without consolidation, micronodule present Procalcitonin normal Discontinue antibiotics COVID pending client services associate consult DVT prophylaxis: Lovenox Diagnosis/Problems Diagnosis/Problems (1) Methamphetamine abuse Status: Acute Clinical Quality Measures DVT/VTE Risk/Contraindication: Risk Factor Score Per Nursin RFS Level Per Nursing on Admit: 2=Moderate YESSI FRITZ MD May 31, 2020 14:39
[2020-05-31 16:00] VITALS: BP 124/78
[2020-05-31 19:21] VITALS: BP 138/74
[2020-05-31] MEDS: KETOROLAC 30 MG/ML VIAL IVP NR ×2 (20:45→22:28)
[2020-05-31] MEDS ORDERED: ENOXAPARIN 40 MG/0.4 ML (LOVENOX) SYR SC SCH (21:00)
[2020-06-01 00:02] VITALS: BP 122/71
--- NOTE | 2020-06-01 06:00 | NUR ---
DR [facility] NOTIFIED OF PT COVID NEGATIVE RESULTS. ORDERED TO REMOVE FROM ISOLATION
[2020-06-01] MEDS: LACTATED RINGERS 1,000 ML IV SCH (07:25)
[2020-06-01 08:00] VITALS: BP 126/80
[2020-06-01] MEDS ORDERED: busPIRone 15 MG (BUSPAR) TABLET PO SCH (09:00)
[2020-06-01] MEDS ORDERED: NICOTINE 21 MG (NICODERM) PATCH TD SCH (09:00)
[2020-06-01] MEDS ORDERED: FLUoxetine HCL 20 MG (PROzac) CAP PO SCH ×2 (09:00)
[2020-06-01] MEDS: dexAMETHasone 6 MG TAB (DECADRON) PO SCH (09:40)
--- NOTE | 2020-06-01 10:52 | NUR ---
CM/SS finalized discharge. Plan: [facility] in [place] today 06/01. The facility will provide transportation. MJ/SS spoke with Layla at the [facility] to confirm discharge. She verified they have a bed available for patient to come today. CM/SS will contact facility once discharge orders are in to set up transportation. No further needs at this time.
--- NOTE | 2020-06-01 13:00 | NUR ---
discharge instructions given, verbalized understanding, iv dc, site without redness or swelling, denies pain or sob.
[2020-06-01 13:17] VITALS: BP 126/80
--- NOTE | 2020-06-01 13:17 | NUR ---
DISMISSED TO [facility] IN [place] PER W/C BY [facility] STAFF
--- NOTE | 2020-06-01 13:45 | Discharge Summary ---
Discharge Summary Hospital Course Was the Problem List Reviewed?: Yes Problems/Dx: (1) Methamphetamine abuse Status: Acute Hospital Course Date of Admission: May 31, 2020 at 00:00 Admission Diagnosis : Methamphetamine abuse Family Physician/Provider: No,Local Physician Date of Discharge: 06/01/20 Discharge Diagnosis: Methamphetamine abuse Hospital Course: Arlet Nelson is a 44-year-old female who presented with multiple complaints and was admitted with possible pneumonia. She was started on antibiotics, but pneumonia was ruled out. She was swabbed for COVID, but this was negative. Her urine toxicology was positive for methamphetamine and her symptoms were thought to be related to her intoxication. She was discharged in stable condition. She is going to [facility]. She should follow-up with her primary care physician in a week or two. Labs and Pending Lab Test: Microbiology 05/30/20 Blood Culture - Preliminary, Resulted No growth Home Meds Active Reported Tylenol (Acetaminophen) 325 Mg Capsule 650 Mg PO Q6H PRN Ibuprofen 200 Mg Capsule 400 Mg PO Q8H PRN Trazodone HCl 150 Mg Tablet 150 Mg PO HS LAST FILLED 03-27-2020 #30 Buspirone HCl 15 Mg Tablet 30 Mg PO BID LAST FILLED 03-27-2020 #120-30 DAY SUPPLY TAKES 2 (15MG) TABS TWICE DAILY Prozac (Fluoxetine HCl) 40 Mg Capsule 60 Mg PO DAILY LAST FILLED 03-27-2020 #30 TAKES A 20MG AND 40MG TO EQUAL 60MG Prozac (Fluoxetine HCl) 20 Mg Capsule 60 Mg PO DAILY LAST FILLED 03-27-2020 #30 TAKES A 20MG AND 40MG TO EQUAL 60MG Assessment/Pt Instructions Take medications as prescribed. Transferred to [facility] in [place] for ongoing care. Discharge Planning: <30 minutes discharge planning Discharge Instructions Discharge Diet: No Restrictions Activity as Tolerated: Yes Discharge Physical Examination Vital Signs Vital Signs Date Time Temp Pulse Resp B/P (MAP) Pulse Ox O2 Delivery O2 Flow Rate FiO2 06/01/20 13:17 36.0 89 18 126/80 97 Room Air General Appearance: No Apparent Distress, Anxious, Obese HEENT: PERRL/EOMI, Pharynx Normal Respiratory: Lungs Clear, Normal Breath Sounds, No Respiratory Distress Cardiovascular: Regular Rate, Rhythm, No Edema, No Murmur Gastrointestinal: Normal Bowel Sounds, Non Tender, Soft Extremity: Normal Inspection, Non Tender, No Pedal Edema Skin: Normal Color, Warm/Dry Neurologic/Psychiatric: Alert, Oriented x3, No Motor/Sensory Deficits, Normal Mood/Affect Allergies: Coded Allergies: No Known Drug Allergies (Unverified , 05/30/20) Discharge Summary Date of Admission May 31, 2020 at 00:00 Date of Discharge Jun 01, 2020 at 13:17 Discharge Date: Jun 01, 2020 Discharge Time: 13:17 Admission Diagnosis Methamphetamine abuse Discharge Diagnosis (1) Methamphetamine abuse Status: Acute Clinical Quality Measures DVT/VTE Risk/Contraindication: Risk Factor Score Per Nursin RFS Level Per Nursing on Admit: 2=Moderate YESSI FRITZ MD Jun 01, 2020 13:45
[2020-06-01] MEDS ORDERED: traZODone 150 MG (DESYREL) TABLET PO SCH (21:00)
== END 2020-06-01 13:17 | DRG 897 ==
LOC: ER 20:09 → 4TH 05-31
PROVIDERS: ADMIT Internal Medicine; ATTEND Internal Medicine
DX: F15.129 Other stimulant abuse with intoxication, unspecified (principal); E86.0 Dehydration; Z59.0 Homelessness; F41.9 Anxiety disorder, unspecified; F32.9 Major depressive disorder, single episode, unspecified; F17.200 Nicotine dependence, unspecified, uncomplicated; Z20.828 Contact with and (suspected) exposure to other viral communicable diseases
CPT/HCPCS: 36415; 71045; 80048; 80053; 80306; 81000; 83605; 83615; 83735; 84145; 84484; 85025; 85379; 85652; 86141; 87040; 87635; 96372; 96374

== ENCOUNTER 2020-09-06 22:20 | Emergency (ER) | payer SELFPAY ==
[~2020-09-06] VITALS: Ht 152 cm; Wt 81.6 kg
[~2020-09-06 22:20] MED LIST: ACET325C7 PO; BUSP15TA60 PO; FLUO20CA42 PO; FLUO40CA12 PO; IBUP-2185 PO; TRAZ150T72 PO
[2020-09-06 22:43] VITALS: BP 123/69
--- NOTE | 2020-09-06 23:12 | ED EENT ---
History of Present Illness General Chief Complaint: Facial Problems Stated Complaint: FACIAL SWELLING Source: patient Exam Limitations: no limitations History of Present Illness Date Seen by Provider: Sep 06, 2020 Time Seen by Provider: 23:00 Initial Comments Patient is a 44-year-old female who presents to the emergency room with a chief complaint of what she believes is swelling to the right posterior jaw. She states she was eating some salami and got a Peppercorn stuck in a fractured molar. She states she had immediate discomfort and feels like she had the swelling right at the angle of the mandible. Patient states at the time of evaluation that is actually feeling better. She states that she was eating approximately 15 minutes prior to arrival when all of this occurred. She did not try anything to make it improve. No other recent complaints of illness or injury. All other review of systems reviewed and negative except as stated. Timing/Duration: abrupt Severity: mild Location: ear (R) Prearrival Treatment: no prearrival treatment Modifying Factors: Improves With Activity (Eating) Associated Symptoms: denies symptoms Allergies and Home Medications Allergies Coded Allergies: No Known Drug Allergies (Unverified , 05/30/20) Home Medications Acetaminophen 325 Mg Capsule, 650 MG PO Q6H PRN for PAIN-MILD (1-4), (Reported) Buspirone HCl 15 Mg Tablet, 30 MG PO BID, (Reported) LAST FILLED 03-27-2020 #120-30 DAY SUPPLY TAKES 2 (15MG) TABS TWICE DAILY Fluoxetine HCl 20 Mg Capsule, 60 MG PO DAILY, (Reported) LAST FILLED 03-27-2020 #30 TAKES A 20MG AND 40MG TO EQUAL 60MG Fluoxetine HCl 40 Mg Capsule, 60 MG PO DAILY, (Reported) LAST FILLED 03-27-2020 #30 TAKES A 20MG AND 40MG TO EQUAL 60MG Ibuprofen 200 Mg Capsule, 400 MG PO Q8H PRN for PAIN-MILD (1-4), (Reported) Trazodone HCl 150 Mg Tablet, 150 MG PO HS, (Reported) LAST FILLED 03-27-2020 #30 Patient Home Medication List Home Medication List Reviewed: Yes Review of Systems Review of Systems Constitutional: no symptoms reported Eyes: No Symptoms Reported Ears: Other (Discomfort in the right ear) Nose: no symptoms reported Mouth: no symptoms reported Throat: no symptoms reported Respiratory: no symptoms reported Cardiovascular: no symptoms reported Gastrointestinal: no symptoms reported Musculoskeletal: no symptoms reported Skin: no symptoms reported All Other Systems Reviewed Negative Unless Noted: Yes Past Tkofvmt-Tsgzhy-Zybqvq Hx Patient Social History Drug of Choice: meth Recent Foreign Travel: No Contact w/Someone Who Travel: No Recent Hopitalizations: No Immunizations Up To Date Tetanus Booster (TDap): More than 5yrs Seasonal Allergies Seasonal Allergies: No Past Medical History Surgeries: Yes Tubal Ligation Respiratory: No Cardiac: No Neurological: No Genitourinary: No Gastrointestinal: No Musculoskeletal: No Endocrine: No HEENT: No Cancer: No Psychosocial: Yes (substance abuse) Anxiety, Depression Integumentary: No Blood Disorders: No Family Medical History Drug abuse 19 FATHER 19 MOTHER G8 BROTHER G8 BROTHER G8 SISTER G8 SISTER No Pertinent Family Hx Physical Exam Vital Signs Vital Signs - First Documented 09/06/20 22:43 Temp 36.2 Pulse 79 Resp 16 B/P (MAP) 123/69 (87) O2 Delivery Room Air Height, Weight, BMI Height: '" Weight: lbs. oz. kg; 32.00 BMI Method: General Appearance: WD/WN, no apparent distress Eyes: bilateral eye normal inspection, bilateral eye PERRL, bilateral eye EOMI Ears: right ear TM normal (Bilateral effusions, no TM erythema; slight bulging of bilateral TMs); bilateral ear auricle normal, bilateral ear canal normal Nose: normal inspection Mouth/Throat: other (Poor dentition, fractured premolar right lower jaw, no surrounding gingival edema or erythema, no foreign body is seen) Neck: non-tender, full range of motion, supple Cardiovascular: regular rate, rhythm Respiratory: normal breath sounds, no respiratory distress, no accessory muscle use Neurologic/Psychiatric: normal mood/affect, oriented x 3 Skin: normal color, warm/dry Progress/Results/Core Measures Results/Orders Vital Signs/I&O 09/06/20 22:43 Temp 36.2 Pulse 79 Resp 16 B/P (MAP) 123/69 (87) O2 Delivery Room Air Departure Impression Primary Impression: Right ear pain Disposition: 01 HOME, SELF-CARE Condition: Stable Departure-Patient Inst. Decision time for Depature: 23:11 Referrals: NO,LOCAL PHYSICIAN (PCP/Family) Primary Care Physician Patient Instructions: Acute Pain, Adult Add. Discharge Instructions: Use ukmu-yol-uikujic decongestants to help decrease the amount of fluid in your ears Follow-up with your primary care doctor Return to the emergency department for any worsening symptoms such as swelling, redness, fever or worsening pain. MARZENA CALLAHAN MD Sep 06, 2020 23:12
== END 2020-09-06 23:16 | disposition home or self-care (01) ==
LOC: EDUNIT# 22:20 → ER 22:22
DX: S02.69XA Fracture of mandible of other specified site, initial encounter for closed fracture (principal); H92.01 Otalgia, right ear; F41.9 Anxiety disorder, unspecified; F32.9 Major depressive disorder, single episode, unspecified; Z20.828 Contact with and (suspected) exposure to other viral communicable diseases; W23.1XXA Caught, crushed, jammed, or pinched between stationary objects, initial encounter
CPT/HCPCS: 99282

== ENCOUNTER 2021-05-26 23:13 | Emergency (ER) | payer SELFPAY ==
[~2021-05-26] VITALS: Ht 150.4 cm; Wt 70.0 kg
[2021-05-26 23:41] LABS: BASOPHILS # (AUTO) 0.1 10^3/uL (0.0-0.1); BASOPHILS % (AUTO) 1 % (0-10); EOSINOPHILS # (AUTO) 0.5 10^3/uL (0.0-0.3); EOSINOPHILS % (AUTO) 5 % (0-10); HEMATOCRIT 39 % (35-52); HEMOGLOBIN 12.8 g/dL (11.5-16.0); LYMPHOCYTES # (AUTO) 2.2 10^3/uL (1.0-4.0); LYMPHOCYTES % (AUTO) 22 % (12-44); MEAN CORPUSCULAR HEMOGLOBIN 32 pg (25-34); MEAN CORPUSCULAR HGB CONC 33 g/dL (32-36); MEAN CORPUSCULAR VOLUME 96 fL (80-99); MONOCYTES # (AUTO) 0.8 10^3/uL (0.0-1.0); MONOCYTES % (AUTO) 9 % (0-12); NEUTROPHILS # (AUTO) 6.1 10^3/uL (1.8-7.8); NEUTROPHILS % (AUTO) 63 % (42-75); PLATELET COUNT 189 10^3/uL (130-400); WHITE BLOOD COUNT 9.8 10^3/uL (4.3-11.0)
[2021-05-26] MEDS ORDERED: KETOROLAC 30 MG/ML VIAL IVP ONE (23:45)
[2021-05-26] MEDS ORDERED: ASPIRIN 81 MG CHEW (CHILDREN'S ASA) PO ONE (23:45)
--- NOTE | 2021-05-26 23:59 | Diagnostic Imaging Report ---
EXAMINATION: Chest radiograph, portable AP view. DATE: 05/26/2021 11:45 PM INDICATION: 45-year-old female, dyspnea. Chest pain. COMPARISON: May 30, 2020. FINDINGS: Stable overall appearance of the cardiomediastinal silhouette. There is no identified pneumothorax. There is no large pleural effusion. There is no identified interval focal airspace consolidation. IMPRESSION: No identified acute cardiopulmonary abnormality. Dictated by: Dictated on workstation # [id number]
[2021-05-27] LABS: ALBUMIN 3.9 GM/DL (3.2-4.5); CHLORIDE 106 MMOL/L (98-107); POTASSIUM 4.3 MMOL/L (3.6-5.0); SODIUM 140 MMOL/L (135-145)
[2021-05-27 00:02] LABS: CALCIUM 8.6 MG/DL (8.5-10.1)
[2021-05-27 00:03] LABS: GLUCOSE 104 MG/DL (70-105); TOTAL PROTEIN 7.2 GM/DL (6.4-8.2)
[2021-05-27 00:04] LABS: CARBON DIOXIDE 20 MMOL/L (21-32)
[2021-05-27 00:05] LABS: BILIRUBIN,TOTAL 0.5 MG/DL (0.1-1.0)
[2021-05-27 00:06] LABS: ALKALINE PHOSPHATASE 50 U/L (40-136); CREATININE SERUM 0.78 MG/DL (0.60-1.30); GFR ESTIMATED 80
[2021-05-27 00:07] LABS: BUN/CREATININE RATIO 18
[2021-05-27 00:09] LABS: ALANINE AMINOTRANSFERASE 13 U/L (0-55); MAGNESIUM 1.6 MG/DL (1.6-2.4)
[2021-05-27 00:10] LABS: CREATINE KINASE 149 U/L (29-168)
[2021-05-27 01:07] LABS: CREATINE KINASE MB 2.9 NG/ML (<6.6)
[2021-05-27] MEDS ORDERED: CATHETER FLUSH 10 ML SYR IV PRN (02:30)
[2021-05-27] MEDS ORDERED: NS 100 ML (IVPB) BAG IV ONE (02:30)
[2021-05-27] MEDS ORDERED: HOLD METFORMIN - RECEIVED CONTRAST 20 ML VIAL IV SCH (02:30)
[2021-05-27] MEDS ORDERED: IOHEXOL 350 MG/ML 100 ML (OMNIPAQUE 350) VIAL IV ONE (02:30)
[2021-05-27 02:33] LABS: BILIRUBIN,URINE NEGATIVE (NEGATIVE); CLARITY,URINE CLEAR; COLOR,URINE YELLOW; GLUCOSE, URINE (UA) NEGATIVE (NEGATIVE); KETONES,URINE NEGATIVE (NEGATIVE); LEUKOCYTE ESTERASE ,URINE NEGATIVE (NEGATIVE); NITRITE,URINE NEGATIVE (NEGATIVE); PROTEIN,URINE NEGATIVE (NEGATIVE)
[2021-05-27] MEDS ORDERED: CYCL10TA9 PO ×2 (03:11→03:14)
[2021-05-27] MEDS ORDERED: NAPR500T8 PO ×2 (03:11→03:14)
--- NOTE | 2021-05-27 03:11 | ED Chest Pain ---
General Chief Complaint: Chest Pain Stated Complaint: CP,SOB,FLUID RETENTION Nursing Triage Note: Pt ambulatory into ER with complaint chest pain since he woke up this morning. Pt states that its a squeezing like pain that goes to her right chest and to her back. Pt denies other complaints. Said she took aleve earlier which did nothing for the pain. Allergies and Home Medications Allergies Coded Allergies: No Known Drug Allergies (Unverified , 05/30/20) Home Medications Acetaminophen 325 Mg Capsule, 650 MG PO Q6H PRN for PAIN-MILD (1-4), (Reported) Buspirone HCl 15 Mg Tablet, 30 MG PO BID, (Reported) LAST FILLED 03-27-2020 #120-30 DAY SUPPLY TAKES 2 (15MG) TABS TWICE DAILY Fluoxetine HCl 20 Mg Capsule, 60 MG PO DAILY, (Reported) LAST FILLED 03-27-2020 #30 TAKES A 20MG AND 40MG TO EQUAL 60MG Fluoxetine HCl 40 Mg Capsule, 60 MG PO DAILY, (Reported) LAST FILLED 03-27-2020 #30 TAKES A 20MG AND 40MG TO EQUAL 60MG Ibuprofen 200 Mg Capsule, 400 MG PO Q8H PRN for PAIN-MILD (1-4), (Reported) Trazodone HCl 150 Mg Tablet, 150 MG PO HS, (Reported) LAST FILLED 03-27-2020 #30 Past Ntkeqhg-Zeietq-Xdnyeo Hx Patient Social History Tobacco Use?: Yes Tobacco type used: Cigarettes Smoking Status: Current Everyday Smoker Use of E-Cig and/or Vaping dev: No Substance use?: No Alcohol Use?: No Pt feels they are or have been: No Immunizations Up To Date Tetanus Booster (TDap): More than 5yrs Influenza Vaccine Up-to-Date: No; Not Current Seasonal Allergies Seasonal Allergies: No Past Medical History Surgeries: Yes Tubal Ligation Respiratory: No Cardiac: No Neurological: No Genitourinary: No Gastrointestinal: No Musculoskeletal: No Endocrine: No HEENT: No Cancer: No Psychosocial: Yes (substance abuse) Anxiety, Depression Integumentary: No Blood Disorders: No Family Medical History Drug abuse 19 FATHER 19 MOTHER G8 BROTHER G8 BROTHER G8 SISTER G8 SISTER No Pertinent Family Hx Physical Exam Vital Signs Vital Signs - First Documented 05/26/21 23:17 Temp 36.8 Pulse 71 Resp 20 B/P (MAP) 162/89 (113) Pulse Ox 97 O2 Delivery Room Air Capillary Refill : Less Than 3 Seconds Height, Weight, BMI Height: '" Weight: lbs. oz. kg; 30.00 BMI Method: Progress/Results/Core Measures Results/Orders Lab Results Laboratory Tests Test 05/26/21 00:55 05/26/21 23:30 Range/Units White Blood Count 9.8 4.3-11.0 10^3/uL Red Blood Count 4.06 3.80-5.11 10^6/uL Hemoglobin 12.8 11.5-16.0 g/dL Hematocrit 39 35-52 % Mean Corpuscular Volume 96 80-99 fL Mean Corpuscular Hemoglobin 32 25-34 pg Mean Corpuscular Hemoglobin Concent 33 32-36 g/dL Red Cell Distribution Width 13.2 10.0-14.5 % Platelet Count 189 130-400 10^3/uL Mean Platelet Volume 12.0 9.0-12.2 fL Immature Granulocyte % (Auto) 0 % Neutrophils (%) (Auto) 63 42-75 % Lymphocytes (%) (Auto) 22 12-44 % Monocytes (%) (Auto) 9 0-12 % Eosinophils (%) (Auto) 5 0-10 % Basophils (%) (Auto) 1 0-10 % Neutrophils # (Auto) 6.1 1.8-7.8 10^3/uL Lymphocytes # (Auto) 2.2 1.0-4.0 10^3/uL Monocytes # (Auto) 0.8 0.0-1.0 10^3/uL Eosinophils # (Auto) 0.5 H 0.0-0.3 10^3/uL Basophils # (Auto) 0.1 0.0-0.1 10^3/uL Immature Granulocyte # (Auto) 0.0 0.0-0.1 10^3/uL D-Dimer 0.87 H 0.00-0.49 UG/ML Sodium Level 140 135-145 MMOL/L Potassium Level 4.3 3.6-5.0 MMOL/L Chloride Level 106 98-107 MMOL/L Carbon Dioxide Level 20 L 21-32 MMOL/L Anion Gap 14 5-14 MMOL/L Blood Urea Nitrogen 14 7-18 MG/DL Creatinine 0.78 0.60-1.30 MG/DL Estimat Glomerular Filtration Rate 80 BUN/Creatinine Ratio 18 Glucose Level 104 70-105 MG/DL Calcium Level 8.6 8.5-10.1 MG/DL Corrected Calcium 8.7 8.5-10.1 MG/DL Magnesium Level 1.6 1.6-2.4 MG/DL Total Bilirubin 0.5 0.1-1.0 MG/DL Aspartate Amino Transf (AST/SGOT) 26 5-34 U/L Alanine Aminotransferase (ALT/SGPT) 13 0-55 U/L Alkaline Phosphatase 50 40-136 U/L Total Creatine Kinase 149 29-168 U/L Creatine Kinase MB 2.9 <6.6 NG/ML Myoglobin 41.1 10.0-92.0 NG/ML Troponin I < 0.028 <0.028 NG/ML B-Type Natriuretic Peptide 35.5 <100.0 PG/ML Total Protein 7.2 6.4-8.2 GM/DL Albumin 3.9 3.2-4.5 GM/DL Serum Test, Qualitative NEGATIVE NEGATIVE Serum Alcohol 11 H <10 MG/DL My Orders Orders - LEVY VELA DO Ed Iv/Invasive Line Start (05/26/21 23:21) Ekg Tracing (05/26/21 23:21) O2 (05/26/21 23:21) Monitor-Rhythm Ecg Trace Only (05/26/21 23:21) Chest 1 View, Ap/Pa Only (05/26/21 23:21) BNP (05/26/21 23:21) Cbc With Automated Diff (05/26/21 23:21) Comprehensive Metabolic Panel (05/26/21 23:21) Creatine Kinase (05/26/21 23:21) Creatine Kinase Mb (05/26/21 23:21) Fibrin Degradation Products (05/26/21 23:21) Magnesium (05/26/21 23:21) Myoglobin Serum (05/26/21 23:21) Troponin I (05/26/21 23:21) Hcg,Qualitative Serum (05/26/21 23:25) Aspirin Chewable Tablet (Baby Aspirin Ch (05/26/21 23:45) Ketorolac Injection (Toradol Injection) (05/26/21 23:45) Alcohol (05/26/21 23:58) Drug Screen Stat (Urine) (05/26/21 23:58) Ua Culture If Indicated (05/26/21 23:58) Ct Angio Chest W (05/27/21 01:37) Iohexol Injection (Omnipaque 350 Mg/Ml 1 (05/27/21 02:30) Received Contrast (Hold Metformin- Contr (05/27/21 02:30) Sodium Chloride Flush (Catheter Flush Sy (05/27/21 02:30) Ns (Ivpb) (Sodium Chloride 0.9% Ivpb Bag (05/27/21 02:30) Medications Given in ED Current Medications Medications Dose Ordered Sig/Frieda Route Start Time Stop Time Status Last Admin Dose Admin Aspirin 324 mg ONCE ONCE PO 05/26/21 23:45 05/26/21 23:46 DC 05/26/21 23:44 324 MG Iohexol 100 ml ONCE ONCE IV 05/27/21 02:30 05/27/21 02:31 DC 05/27/21 02:33 90 ML Ketorolac Tromethamine 30 mg ONCE ONCE IVP 05/26/21 23:45 05/26/21 23:46 DC 05/26/21 23:44 30 MG Sodium Chloride 10 ml NEEDED PRN IV 05/27/21 02:30 05/27/21 02:34 10 ML Sodium Chloride 100 ml ONCE ONCE IV 05/27/21 02:30 05/27/21 02:31 DC 05/27/21 02:33 80 ML Vital Signs/I&O 05/26/21 05/26/21 05/26/21 23:17 23:17 23:44 Temp 36.8 36.8 Pulse 71 Resp 20 B/P (MAP) 162/89 (113) Pulse Ox 97 O2 Delivery Room Air Room Air Blood Pressure Mean: 113 Departure Impression Primary Impression: Right-sided chest wall pain Disposition: HOME, SELF-CARE Condition: Stable Departure-Patient Inst. Decision time for Depature: 03:10 Referrals: JULIANNA PITT APRN (PCP/Family) Primary Care Physician Patient Instructions: Chest Pain (DC), Costochondritis (DC) Add. Discharge Instructions: ALTERNATE ICE AND HEAT TO SORE AREAS AT 20 MINUTE INTERVALS FOLLOW UP WITH [facility] THIS WEEK FOR FURTHER CARE All discharge instructions reviewed with patient and/or family. Voiced understanding. Scripts Cyclobenzaprine HCl (Cyclobenzaprine HCl) 10 Mg Tablet 10 MG PO Q8H PRN for SPASMS, #15 TAB 0 Refills Prov: LEVY VELA DO 05/27/21 Naproxen (Naproxen) 500 Mg Tablet.dr 500 MG PO BID, #20 TAB Prov: LEVY VELA DO 05/27/21 LEVY VELA DO May 27, 2021 03:11
[2021-05-27 03:15] VITALS: BP 128/92
[2021-05-27 03:21] LABS: BACTERIA,URINE TRACE /HPF; RBC,URINE 0-2 /HPF
[2021-05-27 03:25] LABS: AMPHETAMINE SCREEN, URINE NEGATIVE (NEGATIVE); BARBITURATE SCREEN URINE NEGATIVE (NEGATIVE); BENZODIAZEPINES SCREEN URINE POSITIVE (NEGATIVE); CANNABINOID SCREEN, URINE NEGATIVE (NEGATIVE); COCAINE SCREEN URINE NEGATIVE (NEGATIVE); METHADONE STAT NEGATIVE (NEGATIVE); METHAMPHETAMINE SCREEN URINE S NEGATIVE (NEGATIVE); OPIATE SCREEN URINE NEGATIVE (NEGATIVE); OXYCODONE STAT NEGATIVE (NEGATIVE); PROPOXYPHENE STAT NEGATIVE (NEGATIVE); TRICYCLIC ANTIDEPRESSANTS SCRE NEGATIVE (NEGATIVE)
--- NOTE | 2021-05-27 06:57 | Diagnostic Imaging Report ---
PROCEDURE: CT angiography of the chest with contrast. TECHNIQUE: Multiple contiguous axial images were obtained through the chest after uneventful bolus administration of intravenous contrast. 3D reconstructed CTA MIP acquisitions were also performed. Auto Exposure Controls were utilized during the CT exam to meet ALARA standards for radiation dose reduction. INDICATION: Chest pain. Suspected PE. COMPARISON: Chest radiograph 05/26/2021. FINDINGS: No pulmonary artery filling defects. Normal caliber thoracic aorta without evidence of aneurysm or dissection. Normal heart size. No pericardial effusion. No mediastinal, hilar or axillary lymphadenopathy. 7 mm solid pulmonary nodule in the right lower lobe. No pleural effusion or pneumothorax. No acute osseous findings. The visualized upper abdominal contents are unremarkable. IMPRESSION: 1. No pulmonary emboli. 2. 7 mm solid pulmonary nodule right lower lobe. Recommend followup with noncontrast chest CT in 6-12 months. No significant change from preliminary interpretation. Dictated by: Dictated on workstation # [id number]
== END 2021-05-27 03:18 | disposition home or self-care (01) ==
LOC: EDUNIT# 23:13 → ER 23:16
DX: R07.89 Other chest pain (principal); F41.9 Anxiety disorder, unspecified; F32.9 Major depressive disorder, single episode, unspecified; F17.210 Nicotine dependence, cigarettes, uncomplicated; Z79.899 Other long term (current) drug therapy
CPT/HCPCS: 71045; 71275; 80053; 80306; 81000; 82550; 82553; 83735; 83874; 83880; 84484; 84703; 85025; 85379; 93005; 93041; 99284; G0480; 36415; 80320

== ENCOUNTER 2021-11-11 17:35 | Emergency (ER) | payer SELFPAY ==
[~2021-11-11] VITALS: Ht 152 cm; Wt 72.5 kg
[~2021-11-11 17:35] MED LIST changes: +CYCL10TA25 PO; +NAPR500T8 PO
--- NOTE | 2021-11-11 18:26 | ED General ---
General Chief Complaint: COVID19 Suspect/Confirmed Stated Complaint: COVID + ON THURSDAY, SORE THROAT, SOB Nursing Triage Note: PT PRESENTS TO ED WITH COMPLAINTS OF CONTINUED SORE THROAT, FEVERS, COUGH SINCE TESTING POSITIVE OF COVID ON 11/08/21. PT REPORTS S/S STARTED ON 11/06/21 Source of Information: Patient Exam Limitations: No Limitations (LUCIANO DONALD APRN) History of Present Illness Date Seen by Provider: Nov 11, 2021 Time Seen by Provider: 18:14 Initial Comments This is a well-appearing 45-year-old female who presented to the ER with complaints of sore throat, fever, cough since 11/06/21 and she tested for COVID on 11/08/2021. Did not receive COVID-vaccine. No shortness of breath, chest pain, nausea, vomiting, abdominal pain. (LUCIANO DONALD APRN) Allergies and Home Medications Allergies Coded Allergies: No Known Drug Allergies (Unverified , 05/30/20) Patient Home Medication List Home Medication List Reviewed: Yes (LUCIANO DONALD APRN) Acetaminophen (Tylenol) 325 Mg Capsule, 650 MG PO Q6H PRN for PAIN-MILD (1-4), (Reported) Entered as Reported by: JAVIER SALAZAR on 05/31/20 1433 Azithromycin (Azithromycin) 250 Mg Tablet, 500 MG PO DAILY Prescribed by: LUCIANO DONALD on 11/11/21 183 Buspirone HCl (Buspirone HCl) 15 Mg Tablet, 30 MG PO BID, (Reported) Entered as Reported by: JAVIER SALAZAR on 05/31/20 143 Cyclobenzaprine HCl (Cyclobenzaprine HCl) 10 Mg Tablet, 10 MG PO Q8H PRN for SPASMS Prescribed by: LEVY VELA on 05/27/21 0314 Dexamethasone (Dexamethasone) 6 Mg Tablet, 6 MG PO DAILY Prescribed by: LUCIANO DONALD on 11/11/21 183 Fluoxetine HCl (Prozac) 20 Mg Capsule, 60 MG PO DAILY, (Reported) Entered as Reported by: JAVIER SALAZAR on 05/31/20 1433 Fluoxetine HCl (Prozac) 40 Mg Capsule, 60 MG PO DAILY, (Reported) Entered as Reported by: JAVIER SALAZAR on 05/31/20 1433 Ibuprofen (Ibuprofen) 200 Mg Capsule, 400 MG PO Q8H PRN for PAIN-MILD (1-4), (Reported) Entered as Reported by: JAVIER SALAZAR on 05/31/20 1433 Naproxen (Naproxen) 500 Mg Tablet.dr, 500 MG PO BID Prescribed by: LEVY VELA on 05/27/21 0314 Trazodone HCl (Trazodone HCl) 150 Mg Tablet, 150 MG PO HS, (Reported) Entered as Reported by: JAVIER SALAZAR on 05/31/20 1433 Review of Systems Review of Systems Constitutional: see HPI EENTM: no symptoms reported Respiratory: see HPI Cardiovascular: no symptoms reported Gastrointestinal: no symptoms reported Genitourinary: no symptoms reported Musculoskeletal: no symptoms reported Skin: no symptoms reported Psychiatric/Neurological: See HPI (LUCIANO DONALD APRN) Past Xznigtf-Uznhjd-Cbdehu Hx Patient Social History Tobacco Use?: Yes Tobacco type used: Cigarettes Smoking Status: Current Everyday Smoker Substance use?: No Alcohol Use?: No Pt feels they are or have been: No (LUCIANO DONALD APRN) Immunizations Up To Date Tetanus Booster (TDap): More than 5yrs (LUCIANO DONALD APRN) Seasonal Allergies Seasonal Allergies: No (LUCIANO DONALD APRN) Past Medical History Surgery/Hospitalization HX: pmh: copd Surgeries: Yes Tubal Ligation Respiratory: No Cardiac: No Neurological: No Genitourinary: No Gastrointestinal: Yes (HEPATITIS C-NO TREATMENT) Hepatitis Musculoskeletal: No Endocrine: No HEENT: No Cancer: No Psychosocial: Yes (substance abuse) Sleep Difficulties, Anxiety, Depression Integumentary: No Blood Disorders: No (LUCIANO DONALD APRN) Family Medical History Drug abuse 19 FATHER 19 MOTHER G8 BROTHER G8 BROTHER G8 SISTER G8 SISTER No Pertinent Family Hx HAS BEEN IN DETENTION (LUCIANO DONALD APRN) Physical Exam Vital Signs Vital Signs - First Documented 11/11/21 18:02 Temp 36.0 Pulse 87 Resp 16 B/P (MAP) 145/92 (109) Pulse Ox 98 (SHAHNAZ RUGGIERO MD) Vital Signs Capillary Refill : Less Than 3 Seconds (LUCIANO DONALD APRN) Height, Weight, BMI Height: '" Weight: lbs. oz. kg; 31.00 BMI Method: General Appearance: No Apparent Distress, WD/WN Eyes: Bilateral Eye Normal Inspection, Bilateral Eye PERRL, Bilateral Eye EOMI HEENT: PERRL/EOMI, Normal ENT Inspection, Pharynx Normal Neck: Full Range of Motion, Normal Inspection Respiratory: Lungs Clear, Normal Breath Sounds, No Accessory Muscle Use, No Respiratory Distress Cardiovascular: Regular Rate, Rhythm, No Murmur, Normal Peripheral Pulses Gastrointestinal: Normal Bowel Sounds, Non Tender, Soft Back: Normal Inspection Extremity: Normal Capillary Refill, Normal Inspection, Normal Range of Motion Neurologic/Psychiatric: Alert, Oriented x3, No Motor/Sensory Deficits, Normal Mood/Affect Skin: Normal Color, Warm/Dry (LUCIANO DONALD APRN) Progress/Results/Core Measures Suspected Sepsis SIRS Temperature: Pulse: 87 Respiratory Rate: 16 Blood Pressure 145 /92 Mean: 109 (LUCIANO DONALD APRN) Results/Orders Vital Signs/I&O 11/11/21 11/11/21 18:02 18:47 Temp 36.0 36.0 Pulse 87 91 Resp 16 16 B/P (MAP) 145/92 (109) 145/92 Pulse Ox 98 93 (SHAHNAZ RUGGIERO MD) Vital Signs/I&O Capillary Refill : Less Than 3 Seconds (LUCIANO DONALD APRN) Blood Pressure Mean: 109 Progress Note : Progress Note Patient examined and in no acute distress. Has history of COPD. Discussed use of oral antiviral medications. Patient declined use due to her multiple antidepressant/mood stabilizer medications. Would however like to receive the monoclonal antibody infusion if available. Patient was informed of the monoclonal antibodies and discussed that they are an unapproved drug that is authorized for use under the EAU, informed of alternatives to receiving monoclonal antibodies, and received the fax sheet for patients and caregivers. This was reviewed and a copy was provided to the patient. Patient was set up to receive monoclonal antibody infusion at [facility]. Given dose of dexamethasone, toradol, and azithromycin in the emergency department prior to discharge. Discharge plan of care reviewed and she is agreeable with plan. (LUCIANO DONALD APRN) Departure Impression Primary Impression: COVID-19 Disposition: 01 HOME, SELF-CARE Condition: Stable Departure-Patient Inst. Decision time for Depature: 18:30 (LUCIANO DONALD APRN) Referrals: JULIANNA PITT APRN (PCP/Family) Primary Care Physician Patient Instructions: Sotrovimab FDA Fact Sheet, COVID-19 (DC) Add. Discharge Instructions: Plan: 1. [facility] will call you in the morning and notify you of time to arrive to hospital for your infusion. 2. Take your antibiotics and steroids daily as directed and complete full course. 3. Drink plenty of fluids to stay hydrated. 4. You can take over the counter Zinc and Vitamin C. 5. Use your Albuterol inhaler 2 puffs every 4 hours as needed for shortness of breath. 6. Return for any new, concerning, or worsening symptoms. All discharge instructions reviewed with patient and/or family. Voiced understanding. Scripts Azithromycin (Azithromycin) 250 Mg Tablet 500 MG PO DAILY for 5 Days, #4 TAB 0 Refills Prov: LUCIANO DONALD APRN 11/11/21 Dexamethasone (Dexamethasone) 6 Mg Tablet 6 MG PO DAILY for 7 Days, #7 TAB 0 Refills Prov: LUCIANO DONALD APRN 11/11/21 Work/School Note: Work Release Form Date Seen in the Emergency Department: Nov 11, 2021 Return to Work: Nov 12, 2021 ATTENDING PHYSICIAN NOTE: I was physically present as attending physician in the emergency department during the care of this patient, but I was not directly involved in the decision making or delivery of care for this patient. (SHAHNAZ RUGGIERO MD) LUCIANO DONALD APRN Nov 11, 2021 18:26 SHAHNAZ RUGGIERO MD Nov 17, 2021 06:59
[2021-11-11] MEDS ORDERED: AZITHROMYCIN 250 MG TAB (ZITHROMAX) PO ONE (18:30)
[2021-11-11] MEDS ORDERED: KETOROLAC 60 MG/2 ML VIAL IM ONE (18:30)
[2021-11-11] MEDS ORDERED: dexAMETHasone 6 MG TAB (DECADRON) PO ONE (18:30)
[2021-11-11] MEDS ORDERED: DEXA6TAB PO (18:36)
[2021-11-11] MEDS ORDERED: AZIT250T12 PO (18:36)
[2021-11-11 18:47] VITALS: BP 145/92
== END 2021-11-11 18:46 | disposition home or self-care (01) ==
LOC: EDUNIT# 17:35 → ER 17:41
DX: U07.1 COVID-19 (principal); J44.9 Chronic obstructive pulmonary disease, unspecified; F17.210 Nicotine dependence, cigarettes, uncomplicated
CPT/HCPCS: 96372

== ENCOUNTER 2021-12-29 14:26 | Emergency (ER) | payer SELFPAY ==
[~2021-12-29] VITALS: Ht 152 cm; Wt 72.0 kg
[~2021-12-29 14:26] MED LIST changes: +AZIT250T12 PO; +DEXA6TAB PO
--- NOTE | 2021-12-29 15:23 | ED Cough/URI ---
General Chief Complaint: Respiratory Problems Stated Complaint: SOA/CONGESTION/COUGH/CHEST PAIN Nursing Triage Note: ARRIVED VIA AMB TO ROOM 09 WITH COMPLAINTS OF SOA STARTING YESTERDAY. THINKS SHE HAS PNEUMONIA OR IS HER COPD. PT STATES SHE HAD COVID X1 MONTH AGO. Source: patient Exam Limitations: no limitations (RYANN DENISE STUDENT) History of Present Illness Date Seen by Provider: Dec 29, 2021 Time Seen by Provider: 15:05 Initial Comments This is a 45 YO female with history of COPD presenting to the ED with 2 days of productive cough and shortness of breath. She feels that her symptoms are worse today and gets out of breath with walking around in her house. Notes some chest pain only when she coughs as well as post-tussive emesis. Coughs up yellow sputum and is worse in the morning after waking up. Had fever of 101 at home, which was resolved with Tylenol and Ibuprofen. Pt is a 1 ppd smoker for the past 32 years and says this feels like a COPD flare-up or pneumonia. No sick contacts. States she does not think she has COVID because she just had it last month. She normally uses an albuterol nebulizer for her COPD, but ran out of the albuterol and just fired her PCP, so she has no one to prescribe it. Severity/Quality: productive cough Prior Episodes/Possible Cause: chronic episodes Associated Symptoms: cough, fever/chills, sore throat (YRANN DENISE MED STUDENT) Allergies and Home Medications Allergies Coded Allergies: No Known Drug Allergies (Unverified , 05/30/20) Patient Home Medication List Acetaminophen (Tylenol) 325 Mg Capsule, 650 MG PO Q6H PRN for PAIN-MILD (1-4), (Reported) Entered as Reported by: JAVIER SALAZAR on 05/31/20 1433 Azithromycin (Azithromycin) 250 Mg Tablet, 500 MG PO DAILY Prescribed by: LUCIANO DONALD on 11/11/21 1836 Buspirone HCl (Buspirone HCl) 15 Mg Tablet, 30 MG PO BID, (Reported) Entered as Reported by: JAVIER SALAZAR on 05/31/20 1433 Cyclobenzaprine HCl (Cyclobenzaprine HCl) 10 Mg Tablet, 10 MG PO Q8H PRN for SPASMS Prescribed by: LEVY VELA on 05/27/21 0314 Dexamethasone (Dexamethasone) 6 Mg Tablet, 6 MG PO DAILY Prescribed by: LUCIANO DONALD on 11/11/21 1836 Fluoxetine HCl (Prozac) 20 Mg Capsule, 60 MG PO DAILY, (Reported) Entered as Reported by: JAVIER SALAZAR on 05/31/20 143 Fluoxetine HCl (Prozac) 40 Mg Capsule, 60 MG PO DAILY, (Reported) Entered as Reported by: JAVIER SALAZAR on 05/31/20 1433 Ibuprofen (Ibuprofen) 200 Mg Capsule, 400 MG PO Q8H PRN for PAIN-MILD (1-4), (Reported) Entered as Reported by: JAVIER SALAZAR on 05/31/20 1433 Naproxen (Naproxen) 500 Mg Tablet.dr, 500 MG PO BID Prescribed by: LEVY VELA on 05/27/21 0314 Trazodone HCl (Trazodone HCl) 150 Mg Tablet, 150 MG PO HS, (Reported) Entered as Reported by: JAVIER SALAZAR on 05/31/20 1433 Review of Systems Review of Systems Constitutional: No chills; fever EENTM: No blurred vision, No double vision Respiratory: cough, dyspnea on exertion Cardiovascular: No palpitations, No syncope Gastrointestinal: No abdominal pain, No nausea Genitourinary: no symptoms reported Musculoskeletal: see HPI Skin: No pruritus, No rash Psychiatric/Neurological: Denies Headache, Denies Numbness Hematologic/Lymphatic: No Symptoms Reported Immunological/Allergic: no symptoms reported (RYANN DENISE MED STUDENT) All Other Systems Reviewed Negative Unless Noted: Yes (Negative excepted noted.) (RYANN DENISE MED STUDENT) Past Kgb[place]ak-Bbdjnf-Jstytq Hx Patient Social History Tobacco Use?: Yes Tobacco type used: Cigarettes Smoking Status: Current Everyday Smoker Substance use?: No Alcohol Use?: No (RYANN DENISE MED STUDENT) Immunizations Up To Date Tetanus Booster (TDap): More than 5yrs (RYANN DENISE MED STUDENT) Seasonal Allergies Seasonal Allergies: No (RYANN DENISE STUDENT) Past Medical History Surgery/Hospitalization HX: pmh: copd Surgeries: Yes Tubal Ligation Respiratory: No Cardiac: No Neurological: No Genitourinary: No Gastrointestinal: Yes (HEPATITIS C-NO TREATMENT) Hepatitis Musculoskeletal: No Endocrine: No HEENT: No Cancer: No Psychosocial: Yes (substance abuse) Sleep Difficulties, Anxiety, Depression Integumentary: No Blood Disorders: No (RYANN DENISE spigit STUDENT) Family Medical History Drug abuse 19 FATHER 19 MOTHER G8 BROTHER G8 BROTHER G8 SISTER G8 SISTER No Pertinent Family Hx HAS BEEN IN [facility] (RYANN DENISE MED STUDENT) Physical Exam Vital Signs - First Documented 12/29/21 14:30 Temp 36.2 Pulse 97 Resp 16 B/P (MAP) 132/86 (101) Pulse Ox 98 O2 Delivery Room Air (SHAHNAZ RUGGIERO MD) Capillary Refill : Less Than 3 Seconds (RYANN DENISE STUDENT) Height: '" Weight: lbs. oz. kg; 31.00 BMI Method: General Appearance: WD/WN, obese, other (appears uncomfortable) Eyes: Bilateral Eye Normal Inspection, Bilateral Eye PERRL, Bilateral Eye EOMI HEENT: PERRL/EOMI, other (dry mucous membranes) Neck: supple, normal inspection Respiratory: chest non-tender, no respiratory distress, no accessory muscle use; No crackles, No stridor; other (coughs throughout exam) Cardiovascular: regular rate, rhythm, no edema, no murmur Gastrointestinal: non tender, soft; No distended, No guarding Extremities: normal range of motion, normal inspection Neurologic/Psychiatric: no motor/sensory deficits, alert, normal mood/affect, oriented x 3 Skin: normal color, warm/dry (RYANN DENISE MED STUDENT) Progress/Results/Core Measures Suspected Sepsis SIRS Temperature: Pulse: 97 Respiratory Rate: 16 Blood Pressure 132 /86 Mean: 101 (RYANN DENISE spigit STUDENT) Results/Orders Lab Results Laboratory Tests Test 12/29/21 14:44 Range/Units Influenza Type A (RT-PCR) Not Detected Not Detecte Influenza Type B (RT-PCR) Not Detected Not Detecte SARS-CoV-2 RNA (RT-PCR) Not Detected Not Detecte (SHAHNAZ RUGGIERO MD) My Orders Orders - SHAHNAZ RUGGIERO MD Covid 19 Inhouse Test (12/29/21 14:35) Influenza A And B By Pcr (12/29/21 14:35) Chest Pa/Lat (2 View) (12/29/21 15:37) Albuterol/Ipra Inhalation Soln (Duoneb I (12/29/21 15:45) Svn Small Volume Nebulizer (12/29/21 15:40) (SHAHNAZ RUGGIERO MD) Vital Signs/I&O 12/29/21 14:30 Temp 36.2 Pulse 97 Resp 16 B/P (MAP) 132/86 (101) Pulse Ox 98 O2 Delivery Room Air (SHAHNAZ RUGGIERO MD) Vital Signs/I&O Capillary Refill : Less Than 3 Seconds (RYANN DENISE MED STUDENT) Blood Pressure Mean: 101 Diagnostic Imaging Diagonstic Imaging: Xray Plain Films/CT/US/NM/MRI: chest Comments Chest x-ray viewed by me and report reviewed. See report below: NAME: [facility] REC#: [id number] PT STATUS: REG ER : 1975 PHYSICIAN: SHAHNAZ RUGGIERO MD ADMIT DATE: 12/29/21/ER Draft Date of Exam:12/29/21 CHEST PA/LAT (2 VIEW) INDICATION: Shortness of breath. COMPARISON: 05/26/2021. EXAMINATION: Frontal and lateral views of the chest. FINDINGS: Clear lungs, bilaterally. The heart is normal. There is no pneumothorax but osseous structures are normal. IMPRESSION: Negative chest. Dictated on workstation # [id number] Dict: 12/29/21 1552 Trans: 12/29/21 1555 [facility] [id number] Interpreted by: ARASH NORIEGA (SHAHNAZ RUGGIERO MD) Departure Impression Primary Impression: COPD exacerbation Disposition: 01 HOME, SELF-CARE Condition: Improved Departure-Patient Inst. Decision time for Depature: 16:07 (SHAHNAZ RUGGIERO MD) Referrals: [facility] (PCP) Primary Care Physician JULIANNA PITT APRN (Family) Primary Care Physician Patient Instructions: Chronic Obstructive Pulmonary Disease (COPD), Including Emphysema, Quitting Smoking ED Add. Discharge Instructions: Resume doing your nebulizer treatments up to every 4 hours as needed. Use your prednisone over the next 4 days. Take early in the day with food to a void sleep disturbance and upset stomach. Follow-up with your primary care provider soon as possible. Work toward quitting smoking as rapidly as possible. Seek assistance from your primary care provider if needed. Call with questions or concerns. Return to the ER if you have worsening symptoms despite following these recommendations. All discharge instructions reviewed with patient and/or family. Voiced understanding. Scripts Prednisone (Prednisone) 20 Mg Tab 40 MG PO DAILY, #8 TAB 0 Refills Prov: SHAHNAZ RUGGIERO MD 12/29/21 Albuterol Sulfate (Albuterol Sulfate) 2.5 Mg/3 Ml Vial.neb 2.5 MG INH Q4H PRN for WHEEZING, #50 EA 1 Refill Prov: SHAHNAZ RUGGIERO MD 12/29/21 RYANN DENISE MED STUDENT Dec 29, 2021 15:23 SHAHNAZ RUGGIERO MD Dec 29, 2021 15:59
[2021-12-29] MEDS ORDERED: RT-ALBUTEROL/IPRATROPIUM 3 ML (DUONEB) VIAL INH ONE (15:45)
--- NOTE | 2021-12-29 15:56 | Diagnostic Imaging Report ---
INDICATION: Shortness of breath. COMPARISON: 05/26/2021. EXAMINATION: Frontal and lateral views of the chest. FINDINGS: Clear lungs, bilaterally. The heart is normal. There is no pneumothorax but osseous structures are normal. IMPRESSION: Negative chest. Dictated by: Dictated on workstation # [id number]
[2021-12-29] MEDS ORDERED: PRD20T PO (16:09)
[2021-12-29] MEDS ORDERED: ALBU2.5V4 INH (16:09)
[2021-12-29 16:26] VITALS: BP 129/81
== END 2021-12-29 16:26 | disposition home or self-care (01) ==
LOC: EDUNIT# 14:26 → ER 14:28
DX: J44.1 Chronic obstructive pulmonary disease with (acute) exacerbation (principal); F17.210 Nicotine dependence, cigarettes, uncomplicated; Z86.16 Personal history of COVID-19; Z20.822 Contact with and (suspected) exposure to COVID-19
CPT/HCPCS: 71046; 87636